=== PATIENT | male | born 1990 | race African-American/Black ===

== ENCOUNTER 2016-12-16 08:38 | Emergency (ER) | payer OTHER ==
[2016-12-16 08:44] VITALS: RESP 20
[2016-12-16] MEDS ORDERED: ACETAMINOPHEN TAB 500 MG TAB PO STA (08:56)
[2016-12-16] MEDS ORDERED: methylPREDNISolone SOD SUCCI 125 MG/2 ML VIAL IM STA (08:56)
[2016-12-16] MEDS ORDERED: IBUPROFEN 600 MG TAB PO STA (08:56)
[2016-12-16] MEDS ORDERED: IPRATROPIUM-ALBUTEROL 3 ML NEB INHALATION STA (08:56)
--- NOTE | 2016-12-16 08:59 | ED ---
General Adult HPI - General Chief complaint: Upper Respiratory Infection Stated complaint: SOB Time Seen by Provider: 12/16/16 08:46 Source: patient, RN notes reviewed Mode of arrival: ambulatory Limitations: no limitations - History of Present Illness Initial comments: 26-year-old male presents to the emergency room chief complaint of cough and shortness of breath. Patient states it started this morning. Patient states he did feel warm. Patient states that he does smoke. Patient denies any history of asthma. Patient states he just was not feeling very well so thought that he should be evaluated. Patient states he is not having any mucus production with his cough. Patient denies any recent fever, chills, chest pain , back pain, abdominal pain, nausea vomiting, numbness or tingling, dysuria or hematuria, constipation or diarrhea, headaches or visual changes, or any other current symptoms. - Related Data Home Medications Medication Instructions Recorded Confirmed Dm/PE/Acetaminophen/Doxylamine 1 dose PO ONCE 12/16/16 12/16/16 [Tylenol Cold Max Night Liquid] Previous Rx's Medication Instructions Recorded Albuterol Inhaler [Ventolin Hfa 1 - 2 puff INHALATION Q4-6H PRN #1 12/16/16 Inhaler] inhaler predniSONE 50 mg PO DAILY #5 tab 12/16/16 Allergies Allergy/AdvReac Type Severity Reaction Status Date / Time No Known Allergies Allergy Verified 12/16/16 09:12 Review of Systems ROS Statement: Those systems with pertinent positive or pertinent negative responses have been documented in the HPI. ROS Other: All systems not noted in ROS Statement are negative. Past Medical History Past Medical History: Hypertension History of Any Multi-Drug Resistant Organisms: None Reported Past Surgical History: No Surgical Hx Reported Past Psychological History: No Psychological Hx Reported Smoking Status: Current every day smoker Past Alcohol Use History: Occasional Past Drug Use History: Marijuana General Exam - General Exam Comments Initial Comments: General: The patient is awake and alert, in no distress, and does not appear acutely ill. Eye: Pupils are equal, round and reactive to light, extra-ocular movements are intact; there is normal conjunctiva bilaterally. No signs of icterus. Ears, nose, mouth and throat: There are moist mucous membranes and no oral lesions. Neck: The neck is supple, there is no tenderness. Cardiovascular: There is a regular rate and rhythm. No murmur, rub or gallop is appreciated. Respiratory: Lungs are clear to auscultation, respirations are non-labored, breath sounds are equal. Mild wheezes, no stridor, rales, or rhonchi. Musculoskeletal: Normal ROM, no tenderness, There is no pedal edema. There is no calf tenderness or swelling. Sensation intact. Pulses equal bilaterally 2+. Neurological: CN II-XII intact, There are no obvious motor or sensory deficits. Coordination appears grossly intact. Speech is normal. Skin: Skin is warm and dry and no rashes or lesions are noted. Psychiatric: Cooperative, appropriate mood & affect, normal judgment. Limitations: no limitations Course Vital Signs 12/16/16 12/16/16 12/16/16 08:42 08:48 09:13 Temperature 99.9 F H Pulse Rate 104 H 118 H 114 H Respiratory 20 20 Rate Blood Pressure 177/99 O2 Sat by Pulse 98 98 Oximetry 12/16/16 12/16/16 09:26 09:43 Temperature Pulse Rate 111 H 106 H Respiratory Rate Blood Pressure O2 Sat by Pulse 96 Oximetry Medical Decision Making - Medical Decision Making 26-year-old male presents for cough and shortness of breath. Patient Was Reassessed and States He Is Feeling Much Better. Patient Is Moving More Air and Wheezing Has Resolved. This and We Discussed Patient Most Likely Has an Acute Bronchitis. We'll Start Him on Steroids and Inhaler for Home. We Did Have a 5 Minute Discussion about Smoking Cessation and the Importance. We Did Discuss Return Parameters All Patient's Questions. They Stated They Understood and They Are Negative Plan. All Questions Have Been Answered. Patient Discharged Home. - Radiology Data Radiology results: report reviewed, image reviewed Disposition Clinical Impression: Acute bronchitis Disposition: HOME SELF-CARE Condition: Stable Instructions: Acute Bronchitis (ED) Additional Instructions: Please use medication as discussed. Please follow up with family doctor if symptoms have not improved over the next two days. Please return to the emergency room if your symptoms increase or worsen or for any other concerns. Prescriptions: Albuterol Inhaler [Ventolin Hfa Inhaler] 1 - 2 puff INHALATION Q4-6H PRN #1 inhaler PRN Reason: Cough predniSONE 50 mg PO DAILY #5 tab Referrals: Adair Ramirez MD [STAFF PHYSICIAN] - 1-2 days Time of Disposition: 10:07
--- NOTE | 2016-12-16 09:47 | XR ---
EXAMINATION TYPE: XR chest 2V DATE OF EXAM: 12/16/2016 COMPARISON: 09/09/2014 TECHNIQUE: PA and lateral views submitted. HISTORY: Shortness of breath FINDINGS: The lungs are clear and there is no pneumothorax, pleural effusion, or focal pneumonia. Heart size is stable and normal. No overt failure. Bilateral pleural thickening seen. IMPRESSION: 1. No acute process. Stable bilateral pleural-based thickening.
[2016-12-16 10:44] VITALS: BP 163/72; PULSE 95; TEMP 98.8
== END 2016-12-16 10:43 | disposition home or self-care (01) ==
LOC: EC 08:38
DX: J20.9 Acute bronchitis, unspecified (principal); F17.200 Nicotine dependence, unspecified, uncomplicated; Z79.899 Other long term (current) drug therapy
CPT/HCPCS: 94640; 71020; 99283; 96372; J2930

== ENCOUNTER 2017-04-11 22:58 | Emergency (ER) | payer OTHER ==
[2017-04-12] MEDS ORDERED: ACETAMINOPHEN TAB 325 MG TAB ONE (00:48)
[2017-04-12] MEDS ORDERED: IBUPROFEN 800 MG TAB ONE (00:48)
[2017-04-12 05:09] LABS: Appearance,Urine Clear (Clear); Bilirubin,Urine Negative (Negative); Blood,Urine Negative (Negative); Color,Urine Yellow; Glucose,Urine (UA) Negative (Negative); Ketones,Urine Negative (Negative); Leukocyte Esterase,Urine Negative (Negative); Mucus,Urine Rare /hpf; Nitrite,Urine Negative (Negative); PH, Urine 6.5 (5.0-8.0); Protein,Urine Negative (Negative); RBC,Urine 2 /hpf (0-5); Specific Gravity,Urine 1.021 (1.001-1.035); Squamous Epithelial Cell,Urine <1 /hpf (0-4); WBC,Urine 4 /hpf (0-5)
[2017-04-12 05:13] LABS: ALT 72 U/L (21-72); AST 32 U/L (17-59); Albumin 4.5 g/dL (3.5-5.0); Alkaline Phosphatase 66 U/L (38-126); Anion Gap 13 mmol/L; Blood Urea Nitrogen 16 mg/dL (9-20); Calcium 9.8 mg/dL (8.4-10.2); Carbon Dioxide 24 mmol/L (22-30); Chloride 101 mmol/L (98-107); Glucose 105 mg/dL (74-99); Sodium 138 mmol/L (137-145); Total Bilirubin 1.2 mg/dL (0.2-1.3); Total Protein 7.4 g/dL (6.3-8.2)
[2017-04-12 05:37] LABS: Basophils % (A) 0 %; Eosinophils # (A) 0.1 k/uL (0-0.7); Eosinophils % (A) 1 %; HCT 45.8 % (39.0-53.0); HGB 13.8 gm/dL (13.0-17.5); Hypochromasia Moderate; Lymphocytes # (A) 0.3 k/uL (1.0-4.8); Lymphocytes % (A) 5 %; MCH 22.8 pg (25.0-35.0); MCHC 30.2 g/dL (31.0-37.0); MCV 75.6 fL (80.0-100.0); Mean Platelet Volume 7.2; Monocytes # (A) 0.6 k/uL (0-1.0); Monocytes % (A) 11 %; Neutrophils # (A) 4.8 k/uL (1.3-7.7); Neutrophils % (A) 81 %; Platelet Count 143 k/uL (150-450); RBC 6.05 m/uL (4.30-5.90); RDW 12.8 % (11.5-15.5); WBC 5.9 k/uL (3.8-10.6)
--- NOTE | 2017-04-12 06:13 | XR ---
EXAM: XR Chest, 2 Views CLINICAL HISTORY: cough, congestion, shielded TECHNIQUE: Frontal and lateral views of the chest. COMPARISON: 09/09/14 FINDINGS: Lungs: Unremarkable. No consolidation. Pleural space: Unremarkable. No pneumothorax. Heart: Unremarkable. No cardiomegaly. Mediastinum: Unremarkable. Bones/joints: Unremarkable. IMPRESSION: Normal chest x-rays.
== END 2017-04-12 03:03 | disposition home or self-care (01) ==
LOC: EC 22:58
DX: R50.9 Fever, unspecified (principal); R51 Headache; R53.1 Weakness; M79.1 Myalgia; R00.0 Tachycardia, unspecified
CPT/HCPCS: 36415; 71046; 80053; 81003; 83605; 85025; 87502; 99283

== ENCOUNTER 2019-04-24 09:36 | Emergency (ER) | payer OTHER ==
[2019-04-24] MEDS ORDERED: IBUPROFEN 800 MG TAB PO STA (09:52)
--- NOTE | 2019-04-24 09:55 | ED ---
URI HPI - General Chief Complaint: Upper Respiratory Infection Stated Complaint: sore throat/ear pain Time Seen by Provider: 04/24/19 09:47 Source: patient, RN notes reviewed Mode of arrival: ambulatory Limitations: no limitations - History of Present Illness Initial Comments: 28-year-old male presents emergency Department with chief complaint cough duarte estion fever bodyaches last 3 days. Patient states that his son was sick with some her symptoms. Patient has not taken any recent Tylenol or Motrin. Patient states he aches head the toe. Patient denies any nausea vomiting diarrhea constipation or shortness breath. Patient denies any neck pain, neck stiffness. Patient does complain of mild headache. - Related Data Previous Rx's Medication Instructions Recorded Azithromycin [Zithromax Z-pack] 0 mg PO DIRECTED #1 pack 04/24/19 Allergies Allergy/AdvReac Type Severity Reaction Status Date / Time No Known Allergies Allergy Verified 04/24/19 09:47 Review of Systems ROS Statement: Those systems with pertinent positive or pertinent negative responses have been documented in the HPI. ROS Other: All systems not noted in ROS Statement are negative. Past Medical History Past Medical History: Hypertension History of Any Multi-Drug Resistant Organisms: None Reported Past Surgical History: No Surgical Hx Reported Past Psychological History: No Psychological Hx Reported Smoking Status: Current every day smoker Past Alcohol Use History: Occasional Past Drug Use History: Marijuana General Exam Limitations: no limitations General appearance: alert, in no apparent distress Head exam: Present: atraumatic, normocephalic, normal inspection Eye exam: Present: normal appearance, PERRL, EOMI. Absent: scleral icterus, conjunctival injection, periorbital swelling ENT exam: Present: normal exam, normal oropharynx, mucous membranes moist, TM's normal bilaterally Neck exam: Present: normal inspection, full ROM. Absent: tenderness, meningismus, lymphadenopathy Respiratory exam: Present: normal lung sounds bilaterally. Absent: respiratory distress, wheezes, rales, rhonchi, stridor Cardiovascular Exam: Present: regular rate, normal rhythm, normal heart sounds. Absent: systolic murmur, diastolic murmur, rubs, gallop, clicks GI/Abdominal exam: Present: soft, normal bowel sounds. Absent: distended, tenderness, guarding, rebound, rigid Course Vital Signs 04/24/19 04/24/19 09:43 10:03 Temperature 98.8 F Pulse Rate 106 H Respiratory 20 16 Rate Blood Pressure 184/102 O2 Sat by Pulse 98 Oximetry Medical Decision Making - Medical Decision Making Chest x-rays unremarkable. Patient symptoms are consistent with acute bronchitis so patient son was recently diagnosed with strep pharyngitis will be to visit some ice return parameters were discussed. - Lab Data Lab Results 04/24/19 Range/Units 09:08 Influenza Type A RNA Not Detected (Not Detectd) Influenza Type B (PCR) Not Detected (Not Detectd) Disposition Clinical Impression: Bronchitis, Pharyngitis Disposition: HOME SELF-CARE Condition: Stable Instructions (If sedation given, give patient instructions): Acute Bronchitis (ED) Additional Instructions: Please return to the Emergency Department if symptoms worsen or any other concerns. Prescriptions: Azithromycin [Zithromax Z-pack] 0 mg PO DIRECTED #1 pack Is patient prescribed a controlled substance at d/c from ED?: No Referrals: None,Stated [Primary Care Provider] - 1-2 days Time of Disposition: 11:06
--- NOTE | 2019-04-24 10:07 | XR ---
EXAMINATION TYPE: XR chest 2V DATE OF EXAM: 04/24/2019 COMPARISON: 04/12/2017 HISTORY: Chest pain TECHNIQUE: Frontal and lateral views of the chest are obtained. FINDINGS: There is no focal air space opacity. No evidence for pneumothorax. No pleural effusion. The cardiac silhouette size is within normal limits. The osseous structures are grossly intact. IMPRESSION: 1. No acute cardiopulmonary process.
[2019-04-24 11:22] VITALS: BP 145/58; PULSE 91; RESP 18; TEMP 98.1
== END 2019-04-24 11:21 | disposition home or self-care (01) ==
LOC: EC 09:36
DX: J40 Bronchitis, not specified as acute or chronic (principal); J02.9 Acute pharyngitis, unspecified; F17.200 Nicotine dependence, unspecified, uncomplicated
CPT/HCPCS: 71046; 87502; 99284

== ENCOUNTER 2019-11-26 12:21 | Emergency (ER) | payer OTHER ==
[2019-11-26 12:27] VITALS: PULSE 89; RESP 18; TEMP 97.9
[2019-11-26] MEDS ORDERED: hydrALAZINE HCL 20 MG/ML 1 ML VIAL IVP STA ×2 (12:45→13:59)
--- NOTE | 2019-11-26 12:58 | ED ---
General Adult HPI - General Chief complaint: Recheck/Abnormal Lab/Rx Stated complaint: hypertension Time Seen by Provider: 11/26/19 12:35 Source: patient, RN notes reviewed Mode of arrival: ambulatory Limitations: no limitations - History of Present Illness Initial comments: 29-year-old male presents emergency Department chief complaint of hypertension. Patient states he went to [facility] for COVID testing and states that they checked his vitalshis blood pressure is elevated. Patient states that he does have a history of hypertension. Patient states that he used to be on lisinopril 20 states he has not taken it in a while. Patient has no complaints denies headache, dizziness, has pain, shortness breath, nausea, vomiting, diarrhea constipation. Patient states that he does not have a current primary care physician. Patient offers no other complaints. - Related Data Previous Rx's Medication Instructions Recorded lisinopriL 20 mg PO DAILY #30 tab 11/26/19 Allergies Allergy/AdvReac Type Severity Reaction Status Date / Time No Known Allergies Allergy Verified 11/26/19 13:13 Review of Systems ROS Statement: Those systems with pertinent positive or pertinent negative responses have been documented in the HPI. ROS Other: All systems not noted in ROS Statement are negative. Past Medical History Past Medical History: Hypertension History of Any Multi-Drug Resistant Organisms: None Reported Past Surgical History: No Surgical Hx Reported Past Psychological History: No Psychological Hx Reported Smoking Status: Current some day smoker Past Alcohol Use History: Occasional Past Drug Use History: Marijuana General Exam Limitations: no limitations General appearance: alert, in no apparent distress Head exam: Present: atraumatic, normocephalic, normal inspection Eye exam: Present: normal appearance, PERRL, EOMI. Absent: scleral icterus, conjunctival injection, periorbital swelling ENT exam: Present: normal exam, mucous membranes moist Neck exam: Present: normal inspection, full ROM. Absent: tenderness, meningismus, lymphadenopathy Respiratory exam: Present: normal lung sounds bilaterally. Absent: respiratory distress, wheezes, rales, rhonchi, stridor Cardiovascular Exam: Present: regular rate, normal rhythm, normal heart sounds. Absent: systolic murmur, diastolic murmur, rubs, gallop, clicks GI/Abdominal exam: Present: soft, normal bowel sounds. Absent: distended, tenderness, guarding, rebound, rigid Extremities exam: Present: other (Pulses equal on extremities) Neurological exam: Present: alert, oriented X3 Skin exam: Present: warm, dry, intact, normal color. Absent: rash Course Vital Signs 11/26/19 11/26/19 12:22 14:04 Temperature 97.9 F Pulse Rate 89 Respiratory 18 Rate Blood Pressure 199/150 174/103 O2 Sat by Pulse 99 Oximetry Medical Decision Making - Medical Decision Making 29-year-old male presents emergency department for a cement hypertension. Patient did have significant hypertension related to uncontrolled by not taking his medications. Patient was given antihypertensives emergency department. Patient did on lab results. Patient will be discharged on lisinopril 20 with follow-up with PCP. - Lab Data Result diagrams: 11/26/19 12:51 11/26/19 12:51 Lab Results 11/26/19 11/26/19 Range/Units 12:51 12:51 WBC 6.1 (3.8-10.6) k/uL RBC 6.03 H (4.30-5.90) m/uL Hgb 13.7 (13.0-17.5) gm/dL Hct 45.9 (39.0-53.0) % MCV 76.2 L (80.0-100.0) fL MCH 22.8 L (25.0-35.0) pg MCHC 29.9 L (31.0-37.0) g/dL RDW 13.6 (11.5-15.5) % Plt Count 133 L (150-450) k/uL Neutrophils % 54 % Lymphocytes % 29 % Monocytes % 9 % Eosinophils % 3 % Basophils % 1 % Neutrophils # 3.3 (1.3-7.7) k/uL Lymphocytes # 1.8 (1.0-4.8) k/uL Monocytes # 0.6 (0-1.0) k/uL Eosinophils # 0.2 (0-0.7) k/uL Basophils # 0.1 (0-0.2) k/uL Hypochromasia Marked Sodium 138 (137-145) mmol/L Potassium 4.6 (3.5-5.1) mmol/L Chloride 105 (98-107) mmol/L Carbon Dioxide 25 (22-30) mmol/L Anion Gap 8 mmol/L BUN 18 (9-20) mg/dL Creatinine 1.40 H (0.66-1.25) mg/dL Est GFR (CKD-EPI)AfAm 78 (>60 ml/min/1.73 sqM) Est GFR (CKD-EPI)NonAf 68 (>60 ml/min/1.73 sqM) Glucose 109 H (74-99) mg/dL Calcium 9.3 (8.4-10.2) mg/dL Total Bilirubin 0.8 (0.2-1.3) mg/dL AST 40 (17-59) U/L ALT 47 (4-49) U/L Alkaline Phosphatase 63 (38-126) U/L Total Protein 7.3 (6.3-8.2) g/dL Albumin 4.5 (3.5-5.0) g/dL Disposition Clinical Impression: Hypertension Disposition: HOME SELF-CARE Condition: Stable Instructions (If sedation given, give patient instructions): Hypertension (ED) Additional Instructions: Please return to the Emergency Department if symptoms worsen or any other concerns. Prescriptions: lisinopriL 20 mg PO DAILY #30 tab Is patient prescribed a controlled substance at d/c from ED?: No Referrals: Clifford Moy [STAFF PHYSICIAN] - 1-2 days Mickey Garcia MD [STAFF PHYSICIAN] - 1-2 days Time of Disposition: 14:23
[2019-11-26 13:09] LABS: Basophils # (A) 0.1 k/uL (0-0.2); Basophils % (A) 1 %; Eosinophils # (A) 0.2 k/uL (0-0.7); Eosinophils % (A) 3 %; HCT 45.9 % (39.0-53.0); HGB 13.7 gm/dL (13.0-17.5); Hypochromasia Marked; Lymphocytes # (A) 1.8 k/uL (1.0-4.8); Lymphocytes % (A) 29 %; MCH 22.8 pg (25.0-35.0); MCHC 29.9 g/dL (31.0-37.0); MCV 76.2 fL (80.0-100.0); Mean Platelet Volume 7.3; Monocytes # (A) 0.6 k/uL (0-1.0); Monocytes % (A) 9 %; Neutrophils # (A) 3.3 k/uL (1.3-7.7); Neutrophils % (A) 54 %; Platelet Count 133 k/uL (150-450); RBC 6.03 m/uL (4.30-5.90); RDW 13.6 % (11.5-15.5); WBC 6.1 k/uL (3.8-10.6)
[2019-11-26 13:27] LABS: Albumin 4.5 g/dL (3.5-5.0); Calcium 9.3 mg/dL (8.4-10.2); Total Bilirubin 0.8 mg/dL (0.2-1.3); Total Protein 7.3 g/dL (6.3-8.2)
[2019-11-26 13:29] LABS: Potassium 4.6 mmol/L (3.5-5.1)
[2019-11-26] MEDS ORDERED: ENALAPRILAT 1.25 MG/ML 1 ML VIAL IVP STA (13:37)
[2019-11-26 14:24] VITALS: BP 178/96
== END 2019-11-26 14:35 | disposition home or self-care (01) ==
LOC: EC 12:21
DX: I10 Essential (primary) hypertension (principal); F17.200 Nicotine dependence, unspecified, uncomplicated
CPT/HCPCS: 36415; 93005; 80053; 85025; 99283; 96374; 96375; 96376; J0360

== ENCOUNTER 2019-11-26 16:14 | Emergency (ER) | payer OTHER ==
[2019-11-26 16:41] VITALS: TEMP 98.4
[2019-11-26] MEDS ORDERED: METOCLOPRAMIDE 5 MG/ML 2 ML VIAL IVP STA (16:43)
[2019-11-26] MEDS ORDERED: SODIUM CHLORIDE 0.9% 1,000 ML IV STA (16:43)
[2019-11-26] MEDS ORDERED: diphenhydrAMINE 50 MG/ML 1 ML VIAL IVP STA (16:43)
[2019-11-26] MEDS ORDERED: LABETALOL 5 MG/ML VIAL MDV IVP STA (16:47)
--- NOTE | 2019-11-26 16:47 | ED ---
Recheck HPI - General Chief Complaint: Headache Stated Complaint: recheck - headache Time Seen by Provider: 11/26/19 16:42 Source: patient, RN notes reviewed, old records reviewed Mode of arrival: ambulatory Limitations: no limitations - History of Present Illness Initial Comments: This is a 29-year-old male date ER with diagnosis of hypertension did start new blood pressure medication today went home took a nap and woke up with a severe headache. Other headache patient has renal no acute symptoms. Patient presents to ER those events. Has known blood pressure issues for years. No chest pain. MD Complaint: other (Abnormal blood pressure with associated headache) -: hour(s) Returns Today for: Called Because of Abnormal Lab/Test (Abnormal), persistent/worsening pain related to initial visit ( blood pressureheadache ) Symptoms Since Prior Visit: worsening pain (Headache) Associated Symptoms: none Treatments Prior to Arrival: other medications (Did start new medication today) - Related Data Previous Rx's Medication Instructions Recorded Metoprolol Tartrate [Lopressor] 50 mg PO BID #60 tab 11/26/19 lisinopriL 20 mg PO DAILY #30 tab 11/26/19 Allergies Allergy/AdvReac Type Severity Reaction Status Date / Time No Known Allergies Allergy Verified 11/26/19 16:40 Review of Systems ROS Statement: Those systems with pertinent positive or pertinent negative responses have been documented in the HPI. ROS Other: All systems not noted in ROS Statement are negative. Past Medical History Past Medical History: Hypertension History of Any Multi-Drug Resistant Organisms: None Reported Past Surgical History: No Surgical Hx Reported Past Psychological History: No Psychological Hx Reported Smoking Status: Current some day smoker Past Alcohol Use History: Occasional Past Drug Use History: Marijuana General Exam Limitations: no limitations Course Vital Signs 11/26/19 11/26/19 11/26/19 16:34 17:28 17:54 Temperature 98.4 F Pulse Rate 104 H 89 87 Respiratory 18 20 20 Rate Blood Pressure 209/136 174/99 175/123 O2 Sat by Pulse 98 100 100 Oximetry - Reevaluation(s) Reevaluation #1: 11/26/19 17:06 Medical record and ER visit from today are reviewed Reevaluation #2: 11/26/19 18:28 Blood pressure continues to show improvement in the ER headache is resolved Reevaluation #3: 11/26/19 18:28 Patient informed results, questions answered Reevaluation #4: 11/26/19 18:29 Patient will be started on a second dairy blood pressure medication Medical Decision Making - Medical Decision Making 29 male here in the ER patient for headache likely blood pressure related. Fanny ent has normal CT scan here in the ER and can be discharged - Lab Data Result diagrams: 11/26/19 16:59 11/26/19 16:59 Lab Results 11/26/19 11/26/19 11/26/19 Range/Units 16:59 16:59 16:59 WBC 6.7 (3.8-10.6) k/uL RBC 6.25 H (4.30-5.90) m/uL Hgb 14.2 (13.0-17.5) gm/dL Hct 47.1 (39.0-53.0) % MCV 75.3 L (80.0-100.0) fL MCH 22.7 L (25.0-35.0) pg MCHC 30.1 L (31.0-37.0) g/dL RDW 13.6 (11.5-15.5) % Plt Count 169 (150-450) k/uL Neutrophils % 53 % Lymphocytes % 31 % Monocytes % 8 % Eosinophils % 3 % Basophils % 1 % Neutrophils # 3.5 (1.3-7.7) k/uL Lymphocytes # 2.1 (1.0-4.8) k/uL Monocytes # 0.6 (0-1.0) k/uL Eosinophils # 0.2 (0-0.7) k/uL Basophils # 0.1 (0-0.2) k/uL Hypochromasia Moderate PT 9.6 (9.0-12.0) sec INR 0.9 (<1.2) APTT 23.5 (22.0-30.0) sec Sodium 138 (137-145) mmol/L Potassium 3.8 (3.5-5.1) mmol/L Chloride 104 (98-107) mmol/L Carbon Dioxide 24 (22-30) mmol/L Anion Gap 10 mmol/L BUN 16 (9-20) mg/dL Creatinine 1.32 H (0.66-1.25) mg/dL Est GFR (CKD-EPI)AfAm 84 (>60 ml/min/1.73 sqM) Est GFR (CKD-EPI)NonAf 73 (>60 ml/min/1.73 sqM) Glucose 128 H (74-99) mg/dL Calcium 9.8 (8.4-10.2) mg/dL Phosphorus 3.5 (2.5-4.5) mg/dL Magnesium 1.9 (1.6-2.3) mg/dL Total Bilirubin 0.8 (0.2-1.3) mg/dL AST 32 (17-59) U/L ALT 47 (4-49) U/L Alkaline Phosphatase 72 (38-126) U/L Creatine Kinase 349 H (55-170) U/L Troponin I (0.000-0.034) ng/mL NT-Pro-B Natriuret Pep pg/mL Total Protein 7.5 (6.3-8.2) g/dL Albumin 4.7 (3.5-5.0) g/dL TSH 1.340 (0.465-4.680) mIU/L 11/26/19 11/26/19 Range/Units 16:59 16:59 WBC (3.8-10.6) k/uL RBC (4.30-5.90) m/uL Hgb (13.0-17.5) gm/dL Hct (39.0-53.0) % MCV (80.0-100.0) fL MCH (25.0-35.0) pg MCHC (31.0-37.0) g/dL RDW (11.5-15.5) % Plt Count (150-450) k/uL Neutrophils % % Lymphocytes % % Monocytes % % Eosinophils % % Basophils % % Neutrophils # (1.3-7.7) k/uL Lymphocytes # (1.0-4.8) k/uL Monocytes # (0-1.0) k/uL Eosinophils # (0-0.7) k/uL Basophils # (0-0.2) k/uL Hypochromasia PT (9.0-12.0) sec INR (<1.2) APTT (22.0-30.0) sec Sodium (137-145) mmol/L Potassium (3.5-5.1) mmol/L Chloride (98-107) mmol/L Carbon Dioxide (22-30) mmol/L Anion Gap mmol/L BUN (9-20) mg/dL Creatinine (0.66-1.25) mg/dL Est GFR (CKD-EPI)AfAm (>60 ml/min/1.73 sqM) Est GFR (CKD-EPI)NonAf (>60 ml/min/1.73 sqM) Glucose (74-99) mg/dL Calcium (8.4-10.2) mg/dL Phosphorus (2.5-4.5) mg/dL Magnesium (1.6-2.3) mg/dL Total Bilirubin (0.2-1.3) mg/dL AST (17-59) U/L ALT (4-49) U/L Alkaline Phosphatase (38-126) U/L Creatine Kinase (55-170) U/L Troponin I <0.012 (0.000-0.034) ng/mL NT-Pro-B Natriuret Pep 49 pg/mL Total Protein (6.3-8.2) g/dL Albumin (3.5-5.0) g/dL TSH (0.465-4.680) mIU/L - EKG Data -: EKG Interpreted by Me (EKG is sinus rhythm of 91 IN 18 QRS 110 QTc 4:30) Disposition Clinical Impression: Hypertension, Rebound headache Disposition: HOME SELF-CARE Condition: Good Instructions (If sedation given, give patient instructions): Acute Headache ( ED), Hypertension (ED) Prescriptions: Metoprolol Tartrate [Lopressor] 50 mg PO BID #60 tab Is patient prescribed a controlled substance at d/c from ED?: No Referrals: None,Stated [Primary Care Provider] - 1-2 days
[2019-11-26] MEDS: MORPHINE SULFATE 4 MG/ML SYRINGE IV STA ×2 (16:57→16:58)
[2019-11-26 17:10] LABS: Basophils # (A) 0.1 k/uL (0-0.2); Basophils % (A) 1 %; Eosinophils # (A) 0.2 k/uL (0-0.7); Eosinophils % (A) 3 %; HCT 47.1 % (39.0-53.0); HGB 14.2 gm/dL (13.0-17.5); Hypochromasia Moderate; Lymphocytes # (A) 2.1 k/uL (1.0-4.8); Lymphocytes % (A) 31 %; MCH 22.7 pg (25.0-35.0); MCHC 30.1 g/dL (31.0-37.0); MCV 75.3 fL (80.0-100.0); Mean Platelet Volume 9.2; Monocytes # (A) 0.6 k/uL (0-1.0); Monocytes % (A) 8 %; Neutrophils # (A) 3.5 k/uL (1.3-7.7); Neutrophils % (A) 53 %; Platelet Count 169 k/uL (150-450); RBC 6.25 m/uL (4.30-5.90); RDW 13.6 % (11.5-15.5); WBC 6.7 k/uL (3.8-10.6)
[2019-11-26 17:18] LABS: INR 0.9 (<1.2); Partial Thromboplastin Time 23.5 sec (22.0-30.0); Prothrombin Time 9.6 sec (9.0-12.0)
--- NOTE | 2019-11-26 17:18 | XR ---
EXAMINATION TYPE: XR chest 2V DATE OF EXAM: 11/26/2019 COMPARISON: 04/24/2019 INDICATION: Weakness TECHNIQUE: Frontal and lateral views of the chest are obtained. FINDINGS: The heart size is normal. The pulmonary vasculature is normal. The lungs are clear. Cardiac silhouette is stable in appearance. IMPRESSION: 1. No acute pulmonary process.
[2019-11-26 17:22] LABS: Albumin 4.7 g/dL (3.5-5.0); Calcium 9.8 mg/dL (8.4-10.2); Magnesium 1.9 mg/dL (1.6-2.3); Phosphorus 3.5 mg/dL (2.5-4.5); Potassium 3.8 mmol/L (3.5-5.1); Total Bilirubin 0.8 mg/dL (0.2-1.3); Total Protein 7.5 g/dL (6.3-8.2)
--- NOTE | 2019-11-26 18:13 | CT ---
EXAMINATION TYPE: CT brain wo con DATE OF EXAM: 11/26/2019 COMPARISON: 05/10/2010 INDICATION: BLOOM DLP: 1169.4 mGycm, Automated exposure control for dose reduction was used. CONTRAST: None CT of the brain is performed utilizing 3 mm thick sections through the posterior fossa and 3 mm thick sections through the remaining calvarium. Study is performed within 24 hours of arrival to the hosp [facility]. No abnormal hyperdensity is present to suggest an acute intracranial hemorrhage. No mass lesion is evident. No acute infarcts are evident. Ventricles and sulci are appropriate for the patient age. There is mucosal thickening within the maxillary sinuses and through ethmoid air cells. Frontal sinus es are aplastic. Sphenoid sinuses are clear as are the mastoid air cells. IMPRESSIONS: 1. No acute intracranial process. 2. Mucosal thickening throughout the paranasal sinuses.
[2019-11-26] MEDS ORDERED: cloNIDine 0.2 MG/24HR PATCH TRANSDERM SCH (18:30)
[2019-11-26 18:41] VITALS: PULSE 82; RESP 16
[2019-11-26 18:41] LABS: Appearance,Urine Clear (Clear); Bilirubin,Urine Negative (Negative); Blood,Urine Negative (Negative); Color,Urine Yellow; Glucose,Urine (UA) Negative (Negative); Ketones,Urine Negative (Negative); Leukocyte Esterase,Urine Negative (Negative); Nitrite,Urine Negative (Negative); Protein,Urine Trace (Negative); Specific Gravity,Urine 1.018 (1.001-1.035); Urobilinogen,Urine <2.0 mg/dL (<2.0)
[2019-11-26] MEDS ORDERED: METOPROLOL TARTRATE 50 MG TAB PO STA (18:54)
[2019-11-26 18:56] VITALS: BP 183/114
[2019-11-26] MEDS ORDERED: MORPHINE SULFATE 4 MG/ML SYRINGE IVP STA (19:02)
== END 2019-11-26 19:12 | disposition home or self-care (01) ==
LOC: EC 16:14
DX: I10 Essential (primary) hypertension (principal); R51 Headache; F17.200 Nicotine dependence, unspecified, uncomplicated
CPT/HCPCS: 99285 ×2; 96374 ×2; 96375 ×4; 96361 ×3; 96376; 99283; 36415; 93005; 83880; 80053; 82550; 83735; 84100; 84443; 84484; 85025; 85610; 85730; 81003; 71046; 70450; J2270; J0360; J1200; J2765

== ENCOUNTER 2020-01-16 14:47 | Day surgery (SDC) | payer OTHER ==
[2020-01-14 09:34] VITALS: BMI 48.7
--- NOTE | 2020-01-16 07:36 | P.GSHP ---
History of Present Illness H&P Date: 01/16/20 CHIEF COMPLAINT: Back mass HISTORY OF PRESENT ILLNESS: The patient is a 29 year-old male with history of mass along the mid back. He presents today for surgical excision. PAST MEDICAL HISTORY: Please see list. PAST SURGICAL HISTORY: Please see list. MEDICATIONS: Please see list. ALLERGIES: Please see list. SOCIAL HISTORY: Please see list. FAMILY HISTORY: No reports of Crohn disease or ulcerative colitis. REVIEW OF ORGAN SYSTEMS: CONSTITUTIONAL: No reports of fevers or chills. GI: Denies any blood in stools or constipation. PHYSICAL EXAM: VITAL SIGNS: Stable Musculoskeletal: No clubbing cyanosis or edema SKIN: Mid back lesion 3 cm GENERAL: Well developed and in no acute distress. Pleasant. HEENT: No sclera icterus. Extraocular movements grossly intact. Moist buccal mucosa. Head is atraumatic, normocephalic. Hears conversational speech. No nasal drainage. NECK: Supple without lymphadenopathy. No JV distention. CHEST: Non-labored respirations and equal bilateral excursions. CARDIOVASCULAR: Regular rate and rhythm. Palpable 2+ radial pulses. ABDOMEN: Soft. Non-tender. Nondistended. NEUROLOGIC: No focal or lateralizing signs. PSYCH: Appropriate affect. Alert and oriented to person, place and time. ASSESSMENT: 1. Mid back mass PLAN: 1. Will proceed of excision of subcutaneous tumor along the back. 2. DVT prophylaxis. 3. Antibiotic prophylaxis. 4. Time of recovery, at least one week. Past Medical History Past Medical History: Hypertension History of Any Multi-Drug Resistant Organisms: None Reported Past Surgical History: No Surgical Hx Reported Past Anesthesia/Blood Transfusion Reactions: No Reported Reaction Smoking Status: Current every day smoker - Past Family History Mother Family Medical History: No Reported History Medications and Allergies Home Medications Medication Instructions Recorded Confirmed Type Amlodipine Besylate/Valsartan 1 each PO DAILY 01/14/20 01/14/20 History [Amlodipine-Valsartan 5-160 mg] Metoprolol Succinate (ER) [Toprol 100 mg PO DAILY 01/14/20 01/14/20 History Xl] Allergies Allergy/AdvReac Type Severity Reaction Status Date / Time No Known Allergies Allergy Verified 01/14/20 09:18
[~2020-01-16 14:47] MED LIST: DEXAMETHASONE SOD PHOSPHATE 10 MG/ML 1 ML VIAL IV ONE; HEPARIN SODIUM,PORCINE 5,000 UNIT/ML 1 ML VIAL SQ STA; HYDROmorphone 0.5 MG/0.5 ML SYRINGE IVP PRN; LACTATED RINGERS 1,000 ML IV SCH; ONDANSETRON 4 MG/2 ML VIAL IVP ONE; Pre Op ABX Message 1 EACH MISC MISCELLANE ONE; ceFAZolin 3 GM in SODIUM CHLORIDE 0.9% 100 ML IVPB ONE
[2020-01-16] MEDS ORDERED: LIDOCAINE 1% (10MG/ML) FOR IV START INTRADERMA ONE (15:36)
[2020-01-16] MEDS ORDERED: MIDAZOLAM 2 MG/2 ML VIAL IV ONE (15:55)
[2020-01-16] MEDS ORDERED: PROPOFOL 10 MG/ML 20 ML VIAL IV ONE (17:18)
[2020-01-16] MEDS ORDERED: fentaNYL (PF) 50 MCG/ML 2 ML AMP ONE (17:18)
[2020-01-16] MEDS ORDERED: MIDAZOLAM 2 MG/2 ML VIAL ONE (17:18)
[2020-01-16] MEDS ORDERED: ROCURONIUM 10 MG/ML (10 ML VIAL) IV ONE (17:18)
[2020-01-16] MEDS ORDERED: SUCCINYLCHOLINE CHLORIDE 100 MG/5 ML SYR IV ONE (17:18)
[2020-01-16] MEDS ORDERED: GLYCOPYRROLATE 0.2 MG/ML 2 ML VIAL ONE (17:18)
[2020-01-16] MEDS ORDERED: LIDOCAINE 1% INJ 10MG/ML (20 ML MDV) ONE (17:18)
[2020-01-16] MEDS ORDERED: NEOSTIGMINE 1 MG/ML 10 ML VIAL ONE (17:18)
[2020-01-16] MEDS ORDERED: LIDOCAINE 1%-EPI 1:100,000 20 ML VIAL SQ ONE (17:54)
[2020-01-16] MEDS ORDERED: LACTATED RINGERS 1,000 ML IV ONE (18:00)
--- NOTE | 2020-01-16 18:40 | P.OP ---
Date of Procedure: 01/16/20 Description of Procedure: SURGEON: MARIBELL LAMA MD REGIONAL GUIDE: None. PREOPERATIVE DIAGNOSES: 1. Central back tumor 2. Hypertensive heart disease 3. Morbid obesity due to excess calories, BMI 47.6 POSTOPERATIVE DIAGNOSES: 1. Deep subcutaneous Central back back tumor, 6 x 3 cm 2. Hypertensive heart disease 3. Morbid obesity due to excess calories, BMI 47.6 PROCEDURES PERFORMED: 1. Excision of deep subcutaneous Central back back mass, 6 x 3 cm 2. Complex four layer closure left upper back incision, 8-cm Anesthesia: GETA, local Estimated Blood Loss (ml): 5 Pathology: other (back mass) Condition: stable Disposition: same day COMPLICATIONS: None. Operative Findings: 1. Excision of deep subcutaneous Central back tumor 6 x 3 cm INDICATIONS: The patient is a 29-year-old male who presents with symptomatic upper back tumor. Benefits and risks of surgical intervention were described including bleeding, infection, seroma, pain and recurrence. Informed consent was obtained. DESCRIPTION OR PROCEDURE: In the preoperative area, the area of concern was marked with indelible marker. Patient was brought into the operating room. After general induction, he was positioned in left lateral decubitus position. The back was prepped and draped in a standard sterile fashion with ChloraPrep. Timeout protocol was confirmed with the surgical team regarding the patient's name, procedure to be performed including preoperative medications. DVT prophylaxis was confirmed. A field block was placed of the back. An elliptical transverse incision using #1blade was made along the marking into the dermis and subcutaneous tissue. Electro-Bovie cautery was used to enter deep into the deep subcutaneous tissue where a tumor was removed in total of 6 x 3 cm. 0 Vicryl for the deep subcutaneous tissue followed by 3-0 Vicryl for the subcutaneous tissue was placed in interrupted fashion. 4-0 Monocryl in a running subcuticular fashion was placed along the dermis. The skin was cleansed and Exofin tape with liquid was applied for a four layer closure. The incision was covered with Optifoam dressing. At the end of the procedure, needle, sponge, and instrument count was verified correct by surgical instruments inspector. The patient tolerated the procedure well. Plan - Discharge Summary Discharge Rx Participant: No New Discharge Prescriptions: New Ibuprofen [Motrin] 600 mg PO Q8HR PRN #30 tab PRN Reason: Pain Acetaminophen Tab [Tylenol Tab] 1,000 mg PO Q6HR PRN #30 tablet PRN Reason: Pain Continue Amlodipine Besylate/Valsartan [Amlodipine-Valsartan 5-160 mg] 1 each PO DAILY Metoprolol Succinate (ER) [Toprol XL] 100 mg PO DAILY Discharge Medication List Amlodipine Besylate/Valsartan [Amlodipine-Valsartan 5-160 mg] 1 each PO DAILY 01/14/20 [History] Metoprolol Succinate (ER) [Toprol XL] 100 mg PO DAILY 01/14/20 [History] Acetaminophen Tab [Tylenol Tab] 1,000 mg PO Q6HR PRN #30 tablet 01/16/20 [Rx] Ibuprofen [Motrin] 600 mg PO Q8HR PRN #30 tab 01/16/20 [Rx] Follow up Appointment(s)/Referral(s): Maribell Lama MD [STAFF PHYSICIAN] - 01/21/20 Patient Instructions/Handouts: Excision of Skin Lesion (DC) Activity/Diet/Wound Care/Special Instructions: NO WIDE MOTIONS OF THE SHOULDERS/ARMS FOR 1 WEEK. May not return to work until cleared by surgeon. See instructions on dressing. DO NOT REMOVE DRESSING. Use ibuprofen/Tylenol scheduled the next 24-48 hours for best pain relief No lifting over 10 pounds in 2 weeks, Jan 29July shower. No bath tub soaks for two weeks, Jan 29 Diet as tolerated. Use ice along incisions 15 minutes off 15 minutes on Notify surgeon for temperature over 101.5, increased redness along incision, increased pain along surgical site. Discharge Disposition: HOME SELF-CARE
[2020-01-16 19:06] VITALS: TEMP 97.9
[2020-01-16 19:50] VITALS: BP 115/78; PULSE 82; RESP 18
== END 2020-01-16 20:01 | disposition home or self-care (01) ==
LOC: OR 14:47
PROVIDERS: ATTEND Surgery Plastic and Reconstructive Surgery
DX: D23.5 Other benign neoplasm of skin of trunk (principal); I11.9 Hypertensive heart disease without heart failure; E66.01 Morbid (severe) obesity due to excess calories; Z68.42 Body mass index [BMI] 45.0-49.9, adult; F17.200 Nicotine dependence, unspecified, uncomplicated; Z79.899 Other long term (current) drug therapy; K21.9 Gastro-esophageal reflux disease without esophagitis
CPT/HCPCS: 21931; 88305; J2250; J1644; J1100; J2710; J0690; J2405; J2001; J3010; J0330; J2704

== ENCOUNTER → 2020-06-17 | Outpatient (CLI) | payer OTHER ==
--- NOTE | 2020-06-17 11:54 | CONS ---
CONSULTATION DATE OF SERVICE: 06/17/2020 A 29-year-old gentleman has been [facility] for obstructive sleep apnea- hypopnea syndrome. HISTORY OF PRESENT ILLNESS/SLEEP-WAKE EVALUATION: Patient usual sleep schedule from 1 a.m. to 7 a.m. No problems with falling asleep. No TV in bedroom. Patient usually sleeps on the side position. He sleeps with witnessed loud snoring and witnessed episodes of stopped breathing during sleep. Patient wakes up from sleep 3 times with episodes of choking and nocturia. Sometimes he may see dreams right after falling asleep. No history of sleep paralysis or cataplexy. He may take naps 3 times a day. He does not feel refreshed after naps and seeing vivid dreams during the naps. Dent Sleepiness Scale is in extremely high range of 19. The patient has history of home sleep apnea test which was done on 04/19/2020 in another institution. Results of the test showed apnea-hypopnea index 66 with oxygen desaturation to 62%. PAST MEDICAL HISTORY: Positive for hypertension. PAST SURGICAL HISTORY: Positive for back surgery for removing cyst in December 2020. MEDICATIONS: Amlodipine 5 mg, valsartan 160 mg once a day. SOCIAL HISTORY: Negative for using alcohol. Positive for smoking marijuana and small amount of cigarettes 1 cigarette a day according to patient. FAMILY HISTORY: Positive for diabetes and hypertension. REVIEW OF SYSTEMS: Very significant excessive daytime sleepiness, multiple awakenings from sleep. PHYSICAL EXAMINATION: GENERAL: gentleman without distress. VITAL SIGNS: BP 176/116, HR 86, RR18, height 5 feet 8-1/2 inches, weight 332.8 pounds, body mass index 49.8, temperature 98.4, oxygen saturation at room air 98%. HEENT: PERRLA, EOMI. Oropharynx low position of soft palate. Mallampati 3. NECK: Wide neck 19-1/2 inches in circumference. LUNGS: Clear to percussion and to auscultation. Good air exchange. No wheezing or rhonchi. HEART: S1, S2 regular. No murmurs, gallops, or rubs. ABDOMEN: Obese. EXTREMITIES: No clubbing or cyanosis. NETWORKS SOFTWARE CONSULTANT: Awake, alert, and oriented X3. Cranial nerves 2 to 7 intact. There is no fasciculation or atrophy. noted. No focal deficits observed. IMPRESSION: 1. Loud snoring, witnessed episodes of stopped breathing during sleep, small oropharyngeal air space, wide neck, sleepiness. Results of home sleep apnea test which was done in another institution indicate severe obstructive sleep apnea-hypopnea syndrome with apnea-hypopnea index 65 and oxygen desaturation to 52%. 1. Very significant excessive daytime sleepiness. Dent Sleepiness Scale is 19. Positive history of hypnagogic hallucinations. Differential diagnosis would include hypersomnia if after treatment of obstructive sleep apnea-hypopnea syndrome, patient will continue to have symptoms of excessive daytime sleepiness. 2. Morbid obesity, body mass index 49.8. 3. Hypertension. 4. Status post back surgery for cyst removing on January 07. PLAN: 1. CPAP titration for correction of patient respiratory abnormalities during sleep, treatment with auto PAP is not best choice because of extremely severe morbid obesity. 2. Aggressive losing weight program. 3. Sleep hygiene with regular time in bed for 7-1/2 to 8 hours. 4. No driving if feeling any sleepiness. Thank you very much for referring this patient for consultation. Sincerely, Rafael Dacosta MD, PhD, FAASM Diplomat of [place] [employer] [place] [employer] Loss Control Consultant of [facility] MMODL / IJN: [id number] /
== END ==
LOC: SLEEP 10:10
PROVIDERS: ATTEND Internal Medicine
DX: G47.33 Obstructive sleep apnea (adult) (pediatric) (principal); E66.01 Morbid (severe) obesity due to excess calories; Z68.42 Body mass index [BMI] 45.0-49.9, adult; I10 Essential (primary) hypertension; Z98.890 Other specified postprocedural states; F17.210 Nicotine dependence, cigarettes, uncomplicated
CPT/HCPCS: 99211

== ENCOUNTER → 2022-07-27 | Outpatient (CLI) | payer OTHER ==
--- NOTE | 2022-07-27 08:34 | US ---
EXAMINATION TYPE: US renal artery duplex complet DATE OF EXAM: 07/27/2022 COMPARISON: NONE CLINICAL INDICATION: Male, 31 years old with history of I10 ESSENTIAL (PRIMARY) HYPERTENSION; HTN for years even with medication MEASUREMENTS: RENAL SIZE: Rt Kidney: 12.4 x 5.8 x 6.3cm Lt Kidney: 13.0 x 4.8 x 5.9cm RESISTANCE INDEX Right: 0.6 Left: 0.6 RA/AO RATIO (< 3.5 ) Right: 1.4 Left: 1.6 RA VELOCITY ( < 180 cm/s) Right: 98.1 Left: 159.5 No abdominal aortic aneurysm. Normal spectral arterial waveforms involving the aorta. Both kidneys appear unremarkable without evidence of hydronephrosis, nephrolithiasis, or solid mass. No parvus tardus waveforms identified. No significant elevated renal artery velocity. IMPRESSION: No ultrasound evidence for renal artery stenosis.
== END | disposition home or self-care (01) ==
LOC: RADUSWWP 07:03
PROVIDERS: ATTEND Family Medicine
DX: I10 Essential (primary) hypertension (principal)
CPT/HCPCS: 93975

== ENCOUNTER 2024-06-30 17:06 | Inpatient (IN) | payer OTHER ==
[2024-06-30] MEDS: MORPHINE SULFATE 4 MG/ML SYRINGE IV STA (18:16)
[2024-06-30 18:20] LABS: Basophils # (A) 0.05 10*3/uL (0.00-0.10); Basophils % (A) 0.7 %; Eosinophils # (A) 0.07 10*3/uL (0.04-0.35); HCT 41.3 % (39.6-50.0); Immature Platelet Fraction 6.7 % (1.1-6.1); Lymphocytes % (A) 32.7 %; MCH 23.2 pg (27.0-32.0); MCHC 31.5 g/dL (32.0-37.0); MCV 73.6 fL (80.0-97.0); Mean Platelet Volume 11.2 fL (9.5-12.2); Monocytes # (A) 0.92 10*3/uL (0.20-1.00); Monocytes % (A) 13.1 %; Neutrophils # (A) 3.67 10*3/uL (1.80-7.70); Neutrophils % (A) 52.2 %; Platelet Count 117 10*3/uL (140-440); RBC 5.61 10*6/uL (4.40-5.60); RDW 13.7 % (11.5-14.5); WBC 7.03 10*3/uL (4.50-10.00)
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
[2024-06-30 18:30] LABS: ALT 35 U/L (4-49); AST 35 U/L (17-59); African American GFR (CKD) 31 (>60 ml/min/1.73 sqM); Alkaline Phosphatase 74 U/L (38-126); Anion Gap 8 mmol/L; Blood Urea Nitrogen 37 mg/dL (9-20); Calcium 8.8 mg/dL (8.4-10.2); Carbon Dioxide 26 mmol/L (22-30); Chloride 104 mmol/L (98-107); Glucose 110 mg/dL (74-99); Magnesium 2.1 mg/dL (1.6-2.3); Non-African American GFR(CKD) 27 (>60 ml/min/1.73 sqM); Potassium 3.5 mmol/L (3.5-5.1); Sodium 138 mmol/L (137-145); Total Bilirubin 0.9 mg/dL (0.2-1.3); Total Protein 6.6 g/dL (6.3-8.2)
[2024-06-30] MEDS: HYDROcodone/APAP 5-325MG 1 EACH TAB PO STA (18:30)
[2024-06-30] MEDS: LABETALOL 5 MG/ML VIAL MDV IVP STA ×3 (18:31→21:53)
[2024-06-30 18:38] LABS: INR 0.9 (<1.2); Partial Thromboplastin Time 23.7 sec (22.0-30.0); Prothrombin Time 9.8 sec (10.0-12.5)
--- NOTE | 2024-06-30 19:18 | XR ---
EXAMINATION TYPE: XR chest 2V DATE OF EXAM: 06/30/2024 6:42 PM COMPARISON: 12/08/2019 CLINICAL INDICATION: Male, 33 years old with history of Chest Pain, TECHNIQUE: XR chest 2V view(s) obtained. FINDINGS: The heart size is normal. The pulmonary vasculature is normal. The lungs are clear. IMPRESSION: 1. No acute pulmonary process. [facility], , 06/30/2024 7:16 PM
[2024-06-30] MEDS: NITROGLYCERIN SL TABS 0.4 MG TAB SUBLINGUAL PRN (19:50)
[2024-06-30] MEDS: NITROGLYCERIN OINT 1 INCH/GM PACKET TOPICAL STA (21:05)
[2024-06-30] MEDS ORDERED: NALOXONE 0.4 MG/ML 1 ML VIAL IV PRN (22:29)
[2024-06-30] MEDS: cloNIDine 0.3 MG/24HR PATCH TRANSDERM SCH (22:54)
[2024-06-30] MEDS: niCARdipine 20 MG in SODIUM CHLORIDE 0.9% 192 ML IV SCH (22:55)
[2024-07-01 01:00] LABS: Glucose,Whole Blood 119 mg/dL (70-110)
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
[2024-07-01] MEDS: CLEVIDIPINE BUTYRATE 25 MG in EMPTY BAG 1 BAG IV SCH (01:52)
[2024-07-01] MEDS: HYDROcodone/APAP 5-325MG 1 EACH TAB PO PRN (02:45)
[2024-07-01 04:44] LABS: Appearance,Urine Clear (Clear); Bilirubin,Urine Negative (Negative); Blood,Urine Small (Negative); Color,Urine Colorless; Glucose,Urine (UA) Trace (Negative); Hyaline Casts,Urine 1 /lpf (0-2); Ketones,Urine Negative (Negative); Leukocyte Esterase,Urine Negative (Negative); Nitrite,Urine Negative (Negative); Protein,Urine 2+ (Negative); RBC,Urine 1 /hpf (0-5); Specific Gravity,Urine 1.013 (1.001-1.035); Squamous Epithelial Cell,Urine <1 /hpf (0-4); Urobilinogen,Urine <2.0 mg/dL (<2.0); WBC,Urine 1 /hpf (0-5)
[2024-07-01 06:11] LABS: Basophils # (A) 0.04 10*3/uL (0.00-0.10); Basophils % (A) 0.5 %; Eosinophils # (A) 0.02 10*3/uL (0.04-0.35); Eosinophils % (A) 0.2 %; HGB 12.8 g/dL (13.0-17.0); Lymphocytes # (A) 1.62 10*3/uL (0.90-5.00); Lymphocytes % (A) 19.2 %; MCH 23.1 pg (27.0-32.0); MCHC 31.2 g/dL (32.0-37.0); MCV 74.1 fL (80.0-97.0); Monocytes # (A) 0.76 10*3/uL (0.20-1.00); Neutrophils # (A) 5.96 10*3/uL (1.80-7.70); Neutrophils % (A) 70.9 %; Platelet Count 165 10*3/uL (140-440); RBC 5.53 10*6/uL (4.40-5.60); RDW 13.6 % (11.5-14.5); WBC 8.42 10*3/uL (4.50-10.00)
[2024-07-01 06:35] LABS: ALT 34 U/L (4-49); AST 35 U/L (17-59); African American GFR (CKD) 32 (>60 ml/min/1.73 sqM); Alkaline Phosphatase 67 U/L (38-126); Anion Gap 7 mmol/L; Blood Urea Nitrogen 31 mg/dL (9-20); Carbon Dioxide 28 mmol/L (22-30); Chloride 102 mmol/L (98-107); Glucose 123 mg/dL (74-99); Magnesium 2.2 mg/dL (1.6-2.3); Non-African American GFR(CKD) 28 (>60 ml/min/1.73 sqM); Phosphorus 4.7 mg/dL (2.5-4.5); Potassium 3.8 mmol/L (3.5-5.1); Sodium 137 mmol/L (137-145); Total Bilirubin 1.1 mg/dL (0.2-1.3); Total Protein 6.7 g/dL (6.3-8.2)
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
[2024-07-01] MEDS: PANTOPRAZOLE 40 MG/10 ML VIAL IV SCH (08:06)
[2024-07-01] MEDS: amLODIPine 5 MG TAB PO SCH (08:07)
[2024-07-01] MEDS: MORPHINE SULFATE 4 MG/ML SYRINGE IV PRN (08:10)
[2024-07-01] MEDS ORDERED: ONDANSETRON 4 MG/2 ML VIAL IVP PRN (08:35)
--- NOTE | 2024-07-01 10:36 | US ---
EXAMINATION TYPE: US renal artery duplex complete DATE OF EXAM: 07/01/2024 COMPARISON: NONE CLINICAL INDICATION: Male, 33 years old with history of rule out renal artery stenosis; Patient had t est 2 years ago - negative, patient has not been taking BP meds for 2 years TECHNIQUE: Grayscale, color Doppler and spectral Doppler imaging of the bilateral renal arteries and kidneys. FINDINGS: MEASUREMENTS: RENAL SIZE: Right Kidney: 10.1 x 4.5 x 4.5cm Left Kidney: 11.0 x 3.9 x 5.6cm Right Kidney: No hydronephrosis or lesions seen Left Kidney: No hydronephrosis or lesions seen Abd Aorta: No AAA visualized RESISTANCE INDEX Right: 0.7 Left: 0.8 RA/AO RATIO (< 3.5 ) Right: 0.5 Left: 1.3 RENAL ARTERY VELOCITY ( < 180 cm/s) Right: 46.2 Left: 116.4 Specialty Sales Consultant Notes: Challenging exam due to habitus and bowel gas, no obvious stenosis seen Appropriate color Doppler flow and spectral waveforms to the kidneys bilaterally. Grayscale imaging of the kidneys and show no evidence for hydronephrosis or mass. No renal calculi or cysts visualized. IMPRESSION: Limited exam as above. No convincing sonographic/Doppler evidence for renal artery stenosis on either side. [facility], , 07/01/2024 10:34 AM
[2024-07-01] MEDS: amLODIPine 5 MG TAB PO STA (10:39)
[2024-07-01] MEDS: VALSARTAN 160 MG TAB PO SCH (10:39)
[2024-07-01] MEDS: hydroCHLOROthiazide 25 MG TAB PO SCH (10:39)
[2024-07-01] MEDS: METOPROLOL TARTRATE 50 MG TAB PO SCH (10:39)
[2024-07-01] MEDS ORDERED: hydrALAZINE HCL 50 MG TAB PO SCH (10:45)
[2024-07-01] MEDS ORDERED: carvediloL 6.25 MG TAB PO SCH (10:45)
[2024-07-01] MEDS: carvediloL 12.5 MG TAB PO SCH (10:49)
[2024-07-01] MEDS: hydrALAZINE HCL 50 MG TAB PO SCH (10:50)
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
--- NOTE | 2024-07-01 13:00 | CA ---
Transthoracic Echo Report Name: Antonio Barillas Age: 33 Gender: M : 1990 Exam Date: 07/01/2024 08:09 Exam Location: [facility] Ht (in): 67 Wt (lb): 280 Ordering Physician: Ky Sarabia Attending/Referring Phys: Recreational Therapy Technician Mari Montesinos RDCS Procedure CPT: Indications: evaluate LV function, Other hypertrophic cardiomyopathy Cardiac Hx: Technical Quality: Fair Contrast 1: Total Dose (mL): Contrast 2: Total Dose (mL): MEASUREMENTS (Male / Female) Normal Values 2D ECHO LV Diastolic Diameter PLAX 5.1 cm 4.2 - 5.9 / 3.9 - 5.3 cm LV Systolic Diameter PLAX 3.5 cm IVS Diastolic Thickness 1.9 cm 0.6 - 1.0 / 0.6 - 0.9 cm LVPW Diastolic Thickness 1.8 cm 0.6 - 1.0 / 0.6 - 0.9 cm LV Relative Wall Thickness 0.7 LA Systolic Diameter LX 3.6 cm 3.0 - 4.0 / 2.7 - 3.8 cm RV Diastolic Mid Diameter 4.1 cm 2.7 - 3.3 cm M-MODE Aortic Root Diameter MM 3.6 cm DOPPLER AV Peak Velocity 184.5 cm/s AV Peak Gradient 13.6 mmHg Mitral E Point Velocity 110.5 cm/s Mitral A Point Velocity 126.4 cm/s Mitral E to A Ratio 0.9 MV Deceleration Time 218.5 ms MV E' Velocity 6.6 cm/s Mitral E to MV E' Ratio 16.7 FINDINGS Left Ventricle Left ventricular ejection fraction is estimated at 65-70 %. Left ventricular cavity size normal. Severe concentric left ventricular hypertrophy. Right Ventricle . Unable to estimate the right ventricular systolic pressure.right ventricle not well visualized. Right Atrium Right atrium not well visualized. Left Atrium Normal left atrial size. No left atrial thrombus or mass present. Mitral Valve Structurally normal mitral valve. No mitral stenosis, regurgitation or prolapse. Aortic Valve Trileaflet aortic valve. No aortic valve stenosis or regurgitation. Tricuspid Valve Structurally normal tricuspid valve. No tricuspid stenosis, regurgitation or prolapse. Pulmonic Valve Pulmonic valve not well visualized. No pulmonic regurgitation. Pericardium No pericardial effusion. Aorta Normal size aortic root and proximal ascending aorta. CONCLUSIONS LVEF 65 to 70% Severe concentric LVH Increased gradients noticed in LVOT No significant valvular dysfunction No significant chamber size abnormality Consider repeating echocardiogram with Valsalva provoked or stress provoked LVOT gradients, and consider hypertrophic cardiomyopathy workup. Previewed by: Dr Bryan Batista (Electronically Signed) Final Date: 01 July 2024 12:59
[2024-07-01 15:55] LABS: Hepatitis B Surface Antigen Nonreactive (Nonreactive); Hepatitis C IgG Antibody Nonreactive (Nonreactive)
[2024-07-01 16:17] LABS: Hepatitis B Surface AB- Quant 3.5 mIU/mL
--- NOTE | 2024-07-01 16:27 | P.CRDCN ---
History of Present Illness History of present illness: HISTORY OF PRESENTING ILLNESS This is a pleasant 33-year-old with past medical history significant for hypertension, chronic kidney disease. He states he has not been taking his medications for the last 4 months secondary to expense. He has a history of hypertension apparently from the time of COVID and blood pressure he believes was more controlled 4 months ago in the 140s over 90s however has not been taking medications. He presented secondary to left jaw pain and denies any chest pain or pressure or significant shortness of breath. He states otherwise he has been feeling okay. He was found to have extremely elevated blood pressure in the 250s over 140s and placed on Cleviprex drip and admitted to ICU. Amlodipine, carvedilol, hydralazine were initiated. He is normally on combination hydrochlorothiazide and ARB with amlodipine. ARB has been held secondary to acute kidney injury, possible progression of chronic kidney disease. Echocardiogram performed with severe LVH and normal left ventricular function. REVIEW OF SYSTEMS At the time of my exam: CONSTITUTIONAL: Denies fever or chills. CARDIOVASCULAR: Denies chest pain, shortness of breath, orthopnea, PND or palpi tations. RESPIRATORY: Denies cough. GASTROINTESTINAL: Denies abdominal pain, diarrhea, constipation, nausea or vomiting. MUSCULOSKELETAL: Denies myalgias. NEUROLOGIC: Denies numbness, tingling or weakness. ENDOCRINE: Denies fatigue, weight change, polydipsia or polyurina. GENITOURINARY: Denies burning, hematuria or urgency with micturation. HEMATOLOGIC: Denies history of anemia or bleeding. PHYSICAL EXAMINATION Vital signs reviewed. CONSTITUTIONAL: No apparent distress. HEENT: Head is normocephalic. Pupils are equal, round. Sclerae anicteric. Mucous membranes of the mouth are moist. No JVD. No carotid bruit. CHEST EXAMINATION: Lungs are clear to auscultation. No chest wall tenderness is noted on palpation or with deep breathing. HEART EXAMINATION: Regular rate and rhythm. S1, S2 heard. No murmurs, gallops or rub. ABDOMEN: Soft, nontender. Positive bowel sounds. EXTREMITIES: 2+ peripheral pulses, no lower extremity edema and no calf tenderness. NEUROLOGIC EXAMINATION: Patient is awake, alert and oriented x3. ASSESSMENT Hypertensive emergency Jaw pain may be related to angina from uncontrolled hypertension Non-STEMI type II mechanism related to hypertension, chronic kidney disease Acute kidney injury versus progression to chronic kidney disease Severe LVH Medical noncompliance PLAN Evaluate for secondary causes of hypertension. Renal ultrasound shows no significant stenosis however ideally an angiogram. No evidence of coarctation on echo however again ideally would benefit from an angiogram to rule out Coarctation as well. Check blood test including aldosterone levels, renin, cortisol. Continue with current blood pressure regimen however patient may benefit from a diuretic and likely add diuretic tomorrow pending nephrology input. Discussed importance of medical compliance. Patient understanding. Past Medical History Past Medical History: Hypertension, Sleep Apnea/CPAP/BIPAP Additional Past Medical History / Comment(s): [place] with no cpap History of Any Multi-Drug Resistant Organisms: None Reported Past Surgical History: No Surgical Hx Reported Past Anesthesia/Blood Transfusion Reactions: No Reported Reaction Past Psychological History: No Psychological Hx Reported Smoking Status: Current every day smoker Past Alcohol Use History: Occasional Past Drug Use History: Marijuana - Past Family History Mother Family Medical History: No Reported History Medications and Allergies Home Medications Medication Instructions Recorded Confirmed Type Amlodipine/Valsartan/Hcthiazid 1 each PO DAILY 07/01/24 07/01/24 History [Njqah-Orgai-Yxvf 10-320-25 mg] Metoprolol Tartrate [Lopressor] 100 mg PO DAILY 07/01/24 07/01/24 History Allergies Allergy/AdvReac Type Severity Reaction Status Date / Time No Known Allergies Allergy Verified 07/01/24 07:40 Physical Exam Vitals: Vital Signs Temp Pulse Resp BP Pulse Ox 07/01/24 16:00 97.4 F L 85 14 164/102 95 07/01/24 15:45 80 23 163/106 93 L 07/01/24 15:30 82 18 154/95 92 L 07/01/24 15:15 84 20 156/113 95 07/01/24 15:00 18 156/99 94 L 07/01/24 14:45 84 18 156/98 94 L 07/01/24 14:30 84 18 154/103 93 L 07/01/24 14:15 20 157/91 94 L 07/01/24 14:00 39 H 177/104 97 07/01/24 13:45 11 L 164/103 98 07/01/24 13:30 88 15 160/100 96 07/01/24 13:15 91 20 165/109 99 07/01/24 13:00 90 22 174/125 96 07/01/24 12:45 91 39 H 174/117 97 07/01/24 12:30 97 15 165/107 94 L 07/01/24 12:15 18 186/110 97 07/01/24 12:00 97.6 F 102 H 20 190/107 98 07/01/24 11:45 100 28 H 184/116 97 07/01/24 11:30 105 H 10 L 153/91 93 L 07/01/24 11:15 105 H 25 H 180/126 96 07/01/24 11:00 103 H 32 H 187/121 96 07/01/24 10:45 121 H 16 182/120 98 07/01/24 10:30 108 H 53 H 171/111 93 L 07/01/24 10:15 35 H 182/113 98 07/01/24 10:00 21 189/121 98 07/01/24 09:45 104 H 18 189/107 98 07/01/24 09:30 109 H 16 173/113 98 07/01/24 09:15 109 H 12 180/114 97 07/01/24 09:00 105 H 9 L 170/114 96 07/01/24 08:45 108 H 15 194/121 98 07/01/24 08:30 109 H 13 191/124 97 07/01/24 08:15 103 H 11 L 199/130 99 07/01/24 08:00 97.6 F 98 14 177/133 99 07/01/24 07:45 101 H 30 H 176/109 96 07/01/24 07:30 93 24 173/109 95 07/01/24 07:15 94 9 L 184/102 99 07/01/24 07:00 104 H 18 169/102 99 07/01/24 06:50 105 H 21 162/112 94 L 07/01/24 06:40 103 H 20 192/117 94 L 07/01/24 06:30 103 H 21 194/118 93 L 07/01/24 06:20 104 H 35 H 194/118 95 07/01/24 06:10 25 H 187/133 96 07/01/24 06:00 103 H 10 L 199/121 97 07/01/24 05:45 98 14 196/119 97 07/01/24 05:30 102 H 14 171/94 98 07/01/24 05:15 98 19 155/89 93 L 07/01/24 05:00 18 172/92 92 L 07/01/24 04:45 96 16 174/104 93 L 07/01/24 04:30 101 H 20 170/114 96 07/01/24 04:15 105 H 15 160/100 98 07/01/24 04:00 94 11 L 167/95 98 07/01/24 03:45 97 17 172/99 98 07/01/24 03:30 96 12 171/110 97 07/01/24 03:15 97 25 H 178/108 97 07/01/24 03:00 98 12 177/114 98 07/01/24 02:45 102 H 12 181/110 98 07/01/24 02:30 98 14 176/119 97 07/01/24 02:15 100 11 L 176/112 98 07/01/24 02:00 101 H 10 L 179/112 97 07/01/24 01:45 107 H 12 182/132 98 07/01/24 01:30 108 H 12 183/117 99 07/01/24 01:15 97.3 F L 107 H 16 176/114 99 07/01/24 00:39 98.6 F 97 16 194/104 97 07/01/24 00:16 96 16 181/121 96 06/30/24 23:24 96 18 180/107 96 06/30/24 22:23 80 18 211/137 99 06/30/24 21:20 92 18 216/143 99 06/30/24 20:00 91 18 242/161 98 06/30/24 19:54 90 18 199/151 99 06/30/24 19:46 81 18 238/160 97 06/30/24 18:14 108 H 16 99 06/30/24 17:24 49 L 244/154 06/30/24 17:11 98.0 F 105 H 17 245/149 99 Intake and Output 07/01/24 07/01/24 07/01/24 06:59 14:59 22:59 Intake Total 459.386 0791.567 29.533 Output Total 800 650 0 Balance -102.934 604.567 29.533 Intake: Intake, IV Titration 217.066 174.567 29.533 Amount Clevidipine Butyrate 25 99.566 174.567 29.533 mg In Empty Bag 1 bag @ 1 MG/HR 2 mls/hr IV .Q24H [facility] Rx#:[id number] niCARdipine 20 mg In 117.5 Sodium Chloride 0.9% 192 ml @ 5 MG/HR 50 mls/hr IV .Q4H [facility] Rx#:[id number] Oral 480 1080 Output: Urine 800 650 0 Other: Voiding Method Urinal Urinal Urinal Weight 127.006 kg Results 07/01/24 05:27 07/01/24 05:27 Cardiac Enzymes 06/30/24 06/30/24 06/30/24 Range/Units 18:12 18:12 21:19 AST 35 (17-59) U/L Troponin I 0.069 H* 0.054 H* (0.000-0.034) ng/mL 07/01/24 Range/Units 05:27 AST 35 (17-59) U/L Troponin I (0.000-0.034) ng/mL Coagulation 06/30/24 Range/Units 18:12 PT 9.8 L (10.0-12.5) sec APTT 23.7 (22.0-30.0) sec CBC 06/30/24 07/01/24 Range/Units 18:12 05:27 WBC 7.03 8.42 (4.50-10.00) 10*3/uL RBC 5.61 H 5.53 (4.40-5.60) 10*6/uL Hgb 13.0 12.8 L (13.0-17.0) g/dL Hct 41.3 41.0 (39.6-50.0) % Plt Count 117 L 165 (140-440) 10*3/uL Comprehensive Metabolic Panel 06/30/24 07/01/24 Range/Units 18:12 05:27 Sodium 138 137 (137-145) mmol/L Potassium 3.5 3.8 (3.5-5.1) mmol/L Chloride 104 102 (98-107) mmol/L Carbon Dioxide 26 28 (22-30) mmol/L BUN 37 H 31 H (9-20) mg/dL Creatinine 2.94 H 2.85 H (0.66-1.25) mg/dL Glucose 110 H 123 H (74-99) mg/dL Calcium 8.8 9.0 (8.4-10.2) mg/dL AST 35 35 (17-59) U/L ALT 35 34 (4-49) U/L Alkaline Phosphatase 74 67 (38-126) U/L Total Protein 6.6 6.7 (6.3-8.2) g/dL Albumin 4.0 4.0 (3.5-5.0) g/dL Current Medications Generic Name Dose Route Start Last Admin Trade Name Freq PRN Reason Stop Dose Admin Acetaminophen 650 mg 07/01/24 02:40 Acetaminophen Tab 325 Mg Tab PO Q6HR PRN Mild Pain (Scale 1 to 3) Hydrocodone Bitart/Acetaminophen 1 each 07/01/24 02:40 07/01/24 12:38 Hydrocodone/Apap 5-325mg 1 Each Tab PO 1 each Q6HR PRN Administration Moderate Pain (Scale 4 to 6) Amlodipine Besylate 10 mg 07/02/24 09:00 Amlodipine 10 Mg Tab PO DAILY [facility] Carvedilol 25 mg 07/01/24 17:30 07/01/24 10:49 Carvedilol 12.5 Mg Tab PO 25 mg BID-W/MEALS [facility] Administration Clonidine HCl 1 patch 06/30/24 22:45 06/30/24 22:54 Clonidine 0.3 Mg/24hr Patch TRANSDERM 1 patch Q7D [facility] Administration Hydralazine HCl 100 mg 07/01/24 16:00 07/01/24 10:50 Hydralazine Hcl 50 Mg Tab PO 100 mg TID [facility] Administration Clevidipine 25 mg/ IV Solution 50 mls @ 2 mls/hr 07/01/24 02:00 07/01/24 15:40 IV 8 mg/hr .Q24H [facility] 16 mls/hr Titration Protocol 1 MG/HR Morphine Sulfate 4 mg 06/30/24 22:29 07/01/24 08:10 Morphine Sulfate 4 Mg/Ml Syringe IV 4 mg Q3HR PRN Administration Severe Pain (Scale 7 to 10) Naloxone HCl 0.2 mg 06/30/24 22:29 Naloxone 0.4 Mg/Ml 1 Ml Vial IV Q2M PRN Opioid Reversal Nitroglycerin 0.4 mg 06/30/24 19:05 06/30/24 20:02 Nitroglycerin Sl Tabs 0.4 Mg Tab SUBLINGUAL 0.4 mg Q5M PRN Administration Chest Pain Ondansetron HCl 4 mg 07/01/24 08:35 Ondansetron 4 Mg/2 Ml Vial IVP Q6HR PRN Nausea And Vomiting Pantoprazole Sodium 40 mg 07/01/24 09:00 07/01/24 08:06 Pantoprazole 40 Mg/10 Ml Vial IV 40 mg DAILY [facility] Administration Intake and Output 07/01/24 07/01/24 07/01/24 06:59 14:59 22:59 Intake Total 904.341 7897.567 29.533 Output Total 800 650 0 Balance -102.934 604.567 29.533 Intake: Intake, IV Titration 217.066 174.567 29.533 Amount Clevidipine Butyrate 25 99.566 174.567 29.533 mg In Empty Bag 1 bag @ 1 MG/HR 2 mls/hr IV .Q24H [facility] Rx#:[id number] niCARdipine 20 mg In 117.5 Sodium Chloride 0.9% 192 ml @ 5 MG/HR 50 mls/hr IV .Q4H [facility] Rx#:[id number] Oral 480 1080 Output: Urine 800 650 0 Other: Voiding Method Urinal Urinal Urinal Weight 127.006 kg 07/01/24 05:27 07/01/24 05:27
[2024-07-01 19:39] LABS: Anti-DNA, DS unit <1.0 IU/mL; DNA Double-Stranded Negative (Negative)
[2024-07-02 06:05] LABS: African American GFR (CKD) 31 (>60 ml/min/1.73 sqM); Anion Gap 5 mmol/L; Blood Urea Nitrogen 31 mg/dL (9-20); Carbon Dioxide 28 mmol/L (22-30); Chloride 104 mmol/L (98-107); Glucose 94 mg/dL (74-99); Non-African American GFR(CKD) 27 (>60 ml/min/1.73 sqM); Potassium 3.4 mmol/L (3.5-5.1); Sodium 137 mmol/L (137-145)
[2024-07-02] MEDS: amLODIPine 10 MG TAB PO SCH (08:15)
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
[2024-07-02] MEDS: SPIRONOLACTONE 25 MG TAB PO SCH (11:12)
--- NOTE | 2024-07-02 11:21 | P.PN ---
Subjective Patient is seen for follow-up for acute kidney injury, chronic kidney disease and hypertensive emergency. He remains on Cleviprex drip. Oral medications were started yesterday. Blood pressure has improved but still remains high with systolic 158-166 and diastolic of about 99 to 109 mmHg. Maintained on full doses of Norvasc Coreg clonidine and hydralazine. Agree with workup for secondary hypertension. Add plasma free metanephrines to aldosterone renin levels. Patient does have history of obstructive sleep apnea therefore I will add Aldactone. No significant complaints today. Objective - Vital Signs Vital signs: Vital Signs Temp 97.4 F L 07/02/24 08:00 Pulse 82 07/02/24 10:00 Resp 20 07/02/24 11:00 BP 152/99 07/02/24 11:00 Pulse Ox 98 07/02/24 11:00 FiO2 Intake & Output 07/01/24 07/02/24 07/02/24 18:59 06:59 18:59 Intake Total 1774.066 238.567 944.400 Output Total 900 1000 Balance 874.066 -761.433 944.400 Weight 127.9 kg Intake: Intake, IV Titration 244.066 38.567 44.400 Amount Clevidipine Butyrate 25 244.066 38.567 44.400 mg In Empty Bag 1 bag @ 1 MG/HR 2 mls/hr IV .Q24H [facility] Rx#:[id number] Oral 1530 200 900 Output: Urine 900 1000 Other: Voiding Method Urinal Urinal Urinal - Exam Patient is awake, comfortable, no acute distress Left incisor is loose Examination of the heart S1 and S2 Examination of the lungs bilateral breath sounds are heard Abdomen is soft nontender Examination of lower extremities shows no evidence of edema METERMAN exam grossly intact - Labs CBC & Chem 7: 07/01/24 05:27 07/02/24 05:33 Labs: Abnormal Lab Results - Last 24 Hours (Table) 07/02/24 Range/Units 05:33 Potassium 3.4 L (3.5-5.1) mmol/L BUN 31 H (9-20) mg/dL Creatinine 2.91 H (0.66-1.25) mg/dL Assessment and Plan Assessment: 1. Acute kidney injury associated with severely uncontrolled hypertension with possible progression of underlying chronic kidney disease. Nonoliguric. Ultras ound of the kidneys is unremarkable 2. Hypertensive emergency secondary to patient not having taken any medications for 4 months now. Currently maintained on Cleviprex drip and restarted on oral medications. Agree with holding angiotensin receptor blockers for now. Renal artery duplex was unremarkable however it is not an ideal test for renal artery stenosis. Patient will need renal angiogram which can be done down the road as outpatient if blood pressure remains uncontrolled. Patient reports that his blood pressure was well-controlled when he has been taking his medications. Since patient remains on Cleviprex drip along with full doses of 3 oral medications, agree with workup for secondary causes. Add Aldactone due to history of obstructive sleep apnea. If blood pressure remains uncontrolled we can resume angiotensin receptor blockers as well. 3. Chronic kidney disease stage II with previous creatinine 1.3 to 1.4 mg/dL in 2020. Probable worsening of renal function associated with uncontrolled hypertension over the last few months. UA shows 2+ protein workup for proteinuria will be ordered. Patient will need outpatient follow-up and may need a kidney biopsy if renal function does not improve. Rule out underlying FSGS. Serologies negative thus far. 4. History of marijuana use Plan: Continue to wean off Cleviprex. Add plasma free metanephrine levels to aldosterone and renin levels Add Aldactone Replace potassium Restart angiotensin receptor blockers tomorrow if blood pressure remains uncontrolled.
[2024-07-02 13:27] LABS: C-ANCA <1:20 Titer (<1:20)
--- NOTE | 2024-07-02 14:41 | P.PN ---
Subjective HISTORY OF PRESENTING ILLNESS This is a pleasant 33-year-old with past medical history significant for hypertension, chronic kidney disease. He states he has not been taking his medications for the last 4 months secondary to expense. He has a history of hypertension apparently from the time of COVID and blood pressure he believes was more controlled 4 months ago in the 140s over 90s however has not been taking medications. He presented secondary to left jaw pain and denies any chest pain or pressure or significant shortness of breath. He states otherwise he has been feeling okay. He was found to have extremely elevated blood pressure in the 250s over 140s and placed on Cleviprex drip and admitted to ICU. Amlodipine, carvedilol, hydralazine were initiated. He is normally on combination hydrochlorothiazide and ARB with amlodipine. ARB has been held secondary to acute kidney injury, possible progression of chronic kidney disease. Echocardiogram performed with severe LVH and normal left ventricular function. 07/02 Patient seen and examined. Patient denies any chest pain or pressure. Cleviprex stopped however blood pressure 1 from 150s up to 180s over 120s. Additionally Aldactone was added and blood pressure still not at goal. Creatinine remained stable. Still making good urine. PHYSICAL EXAMINATION Vital signs reviewed. CONSTITUTIONAL: No apparent distress. HEENT: Head is normocephalic. Pupils are equal, round. Sclerae anicteric. Mucous membranes of the mouth are moist. No JVD. No carotid bruit. CHEST EXAMINATION: Lungs are clear to auscultation. No chest wall tenderness is noted on palpation or with deep breathing. HEART EXAMINATION: Regular rate and rhythm. S1, S2 heard. No murmurs, gallops or rub. ABDOMEN: Soft, nontender. Positive bowel sounds. EXTREMITIES: 2+ peripheral pulses, no lower extremity edema and no calf tenderness. NEUROLOGIC EXAMINATION: Patient is awake, alert and oriented x3. ASSESSMENT Hypertensive emergency Jaw pain may be related to angina from uncontrolled hypertension Non-STEMI type II mechanism related to hypertension, chronic kidney disease Acute kidney injury versus progression to chronic kidney disease Severe LVH Medical noncompliance PLAN Evaluate for secondary causes of hypertension. Renal ultrasound shows no significant stenosis however ideally an angiogram. No evidence of coarctation on echo however again ideally would benefit from an angiogram to rule out Coarctation as well. JUDI's not available however discussed with nurse to check upper and lower extremity BP's. Await aldosterone levels, renin Still uncontrolled hypertension and add diuretic at least x 1 with Lasix. Monitor response Objective - Vital Signs Vital signs: Vital Signs Temp 97.4 F L 07/02/24 12:00 Pulse 81 07/02/24 13:15 Resp 26 H 07/02/24 13:15 BP 153/90 07/02/24 13:15 Pulse Ox 93 L 07/02/24 13:15 FiO2 Intake & Output 07/01/24 07/02/24 07/02/24 18:59 06:59 18:59 Intake Total 1774.066 238.567 971.300 Output Total 900 1000 300 Balance 874.066 -761.433 671.300 Weight 127.9 kg Intake: Intake, IV Titration 244.066 38.567 71.300 Amount Clevidipine Butyrate 25 244.066 38.567 71.300 mg In Empty Bag 1 bag @ 1 MG/HR 2 mls/hr IV .Q24H [facility] Rx#:[id number] Oral 1530 200 900 Output: Urine 900 1000 300 Other: Voiding Method Urinal Urinal Urinal - Labs CBC & Chem 7: 07/01/24 05:27 07/02/24 05:33 Labs: Abnormal Lab Results - Last 24 Hours (Table) 07/02/24 Range/Units 05:33 Potassium 3.4 L (3.5-5.1) mmol/L BUN 31 H (9-20) mg/dL Creatinine 2.91 H (0.66-1.25) mg/dL
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
[2024-07-02] MEDS: FUROSEMIDE 10 MG/ML 10 ML VIAL IV STA (15:53)
--- NOTE | 2024-07-02 16:51 | US ---
EXAMINATION TYPE: US arterial LE single level DATE OF EXAM: 07/02/2024 4:29 PM COMPARISONS: None. CLINICAL INDICATION: Male, 33 years old with history of JUDI (ankle brachial index); JUDI per order TECHNIQUE: Systolic pressures were taken of the upper and lower extremity arteries with ankle-brachia l indices and toe brachial indices calculated bilaterally. History of: Smoker: Current Hypertension: Yes Diabetic: No Hyperlipidemia: No TIA/CVA: No Previous Vascular Surgery: No ND: NO Vascular Ulcers: No Claudication: No Gangrene: No FINDINGS: Doppler Waveforms: Right: Multiphasic Left: Multiphasic Brachial Artery systolic pressure: Right: Deferred due to IV Left: 194 Posterior Tibial artery systolic pressure: Right: 224 Left: CNO Dorsalis Pedis artery systolic pressure: Right: CNO Left: 215 Ankle-Brachial Indices: Right: 1.15 Left: 1.11 IMPRESSION: JUDI: Right: Normal 0.9 - 1.4, Recommendation: None Left: Normal 0.9 - 1.4, Recommendation: None [facility], , 07/02/2024 4:48 PM
[2024-07-03 06:07] LABS: Basophils # (A) 0.04 10*3/uL (0.00-0.10); Basophils % (A) 0.6 %; Eosinophils % (A) 1.5 %; Immature Platelet Fraction 7.3 % (1.1-6.1); Lymphocytes # (A) 2.07 10*3/uL (0.90-5.00); Lymphocytes % (A) 31.6 %; MCH 22.2 pg (27.0-32.0); MCV 73.9 fL (80.0-97.0); Mean Platelet Volume 11.1 fL (9.5-12.2); Monocytes # (A) 0.94 10*3/uL (0.20-1.00); Monocytes % (A) 14.4 %; Neutrophils # (A) 3.39 10*3/uL (1.80-7.70); Neutrophils % (A) 51.7 %; Platelet Count 168 10*3/uL (140-440); RBC 5.41 10*6/uL (4.40-5.60); RDW 13.8 % (11.5-14.5); WBC 6.55 10*3/uL (4.50-10.00)
[2024-07-03 07:06] LABS: African American GFR (CKD) 27 (>60 ml/min/1.73 sqM); Anion Gap 7 mmol/L; Blood Urea Nitrogen 37 mg/dL (9-20); Calcium 9.6 mg/dL (8.4-10.2); Carbon Dioxide 27 mmol/L (22-30); Chloride 103 mmol/L (98-107); Glucose 91 mg/dL (74-99); Non-African American GFR(CKD) 23 (>60 ml/min/1.73 sqM); Potassium 3.7 mmol/L (3.5-5.1); Sodium 137 mmol/L (137-145)
[2024-07-03] MEDS: HEPARIN SODIUM,PORCINE 5,000 UNIT/ML 1 ML VIAL SQ SCH (08:16)
[2024-07-03] MEDS: SPIRONOLACTONE 25 MG TAB PO SCH (08:16)
[2024-07-03] MEDS: ACETAMINOPHEN TAB 325 MG TAB PO PRN (08:24)
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
--- NOTE | 2024-07-03 12:44 | P.PN ---
Subjective HISTORY OF PRESENTING ILLNESS This is a pleasant 33-year-old with past medical history significant for hypertension, chronic kidney disease. He states he has not been taking his medications for the last 4 months secondary to expense. He has a history of hypertension apparently from the time of COVID and blood pressure he believes was more controlled 4 months ago in the 140s over 90s however has not been taking medications. He presented secondary to left jaw pain and denies any chest pain or pressure or significant shortness of breath. He states otherwise he has been feeling okay. He was found to have extremely elevated blood pressure in the 250s over 140s and placed on Cleviprex drip and admitted to ICU. Amlodipine, carvedilol, hydralazine were initiated. He is normally on combination hydrochlorothiazide and ARB with amlodipine. ARB has been held secondary to acute kidney injury, possible progression of chronic kidney disease. Echocardiogram performed with severe LVH and normal left ventricular function. 07/02 Patient seen and examined. Patient denies any chest pain or pressure. Cleviprex stopped however blood pressure 1 from 150s up to 180s over 120s. Additionally Aldactone was added and blood pressure still not at goal. Creatinine remained stable. Still making good urine. 07/03 Patient seen and examined. Patient denies any chest pain or pressure. Cleviprex was briefly stopped yesterday however blood pressure went back up and therefore it was restarted. Cleviprex again was stopped this morning. He was given Lasix yesterday with what he states was significant urine output. Creatinine mildly increased up to 3.1. Aldosterone 34, renin 27. PHYSICAL EXAMINATION Vital signs reviewed. CONSTITUTIONAL: No apparent distress. HEENT: Head is normocephalic. Pupils are equal, round. Sclerae anicteric. Mucous membranes of the mouth are moist. No JVD. No carotid bruit. CHEST EXAMINATION: Lungs are clear to auscultation. No chest wall tenderness is noted on palpation or with deep breathing. HEART EXAMINATION: Regular rate and rhythm. S1, S2 heard. No murmurs, gallops or rub. ABDOMEN: Soft, nontender. Positive bowel sounds. EXTREMITIES: 2+ peripheral pulses, no lower extremity edema and no calf tendern ess. NEUROLOGIC EXAMINATION: Patient is awake, alert and oriented x3. ASSESSMENT Hypertensive emergency Jaw pain may be related to angina from uncontrolled hypertension Non-STEMI type II mechanism related to hypertension, chronic kidney disease Acute kidney injury versus progression to chronic kidney disease Severe LVH Medical noncompliance PLAN Evaluate for secondary causes of hypertension. Renal ultrasound shows no significant stenosis however ideally an angiogram. ABIs normal and no evidence of coarctation Aldosterone and renin level normal Spironolactone was increased and blood pressures are somewhat more normal. Hopeful discharge in 24 hours if blood pressures remain somewhat stable. Objective - Vital Signs Vital signs: Vital Signs Temp 96.0 F L 07/03/24 08:00 Pulse 80 07/03/24 09:00 Resp 24 07/03/24 09:00 BP 150/99 07/03/24 09:00 Pulse Ox 92 L 07/03/24 09:00 FiO2 Intake & Output 07/02/24 07/03/24 07/03/24 18:59 06:59 18:59 Intake Total 1175.300 200 540 Output Total 1000 2100 225 Balance 175.300 -1900 315 Weight 128.2 kg Intake: IV 20 Invasive Line 2 10 Invasive Line 3 10 Intake, IV Titration 75.300 Amount Clevidipine Butyrate 25 75.300 mg In Empty Bag 1 bag @ 1 MG/HR 2 mls/hr IV .Q24H [facility] Rx#:[id number] Oral 1100 200 520 Output: Urine 1000 2100 225 Other: Voiding Method Urinal Urinal Urinal # Voids 1 # Bowel Movements 1 1 - Labs CBC & Chem 7: 07/03/24 05:28 07/03/24 05:28 Labs: Abnormal Lab Results - Last 24 Hours (Table) 07/03/24 07/03/24 Range/Units 05:28 05:28 Hgb 12.0 L (13.0-17.0) g/dL MCV 73.9 L (80.0-97.0) fL MCH 22.2 L (27.0-32.0) pg MCHC 30.0 L (32.0-37.0) g/dL Immature Plt Fraction 7.3 H (1.1-6.1) % BUN 37 H (9-20) mg/dL Creatinine 3.30 H (0.66-1.25) mg/dL
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
[2024-07-03] MEDS: LOSARTAN 25 MG TAB PO SCH (17:03)
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
[2024-07-04] MEDS: cloNIDine HCL 0.1 MG TAB PO SCH (00:58)
[2024-07-04 04:50] LABS: African American GFR (CKD) 28 (>60 ml/min/1.73 sqM); Anion Gap 7 mmol/L; Blood Urea Nitrogen 35 mg/dL (9-20); Calcium 9.4 mg/dL (8.4-10.2); Carbon Dioxide 27 mmol/L (22-30); Chloride 101 mmol/L (98-107); Glucose 99 mg/dL (74-99); Non-African American GFR(CKD) 24 (>60 ml/min/1.73 sqM); Potassium 3.8 mmol/L (3.5-5.1); Sodium 135 mmol/L (137-145)
[2024-07-04] MEDS: SPIRONOLACTONE 25 MG TAB PO SCH (07:46)
[2024-07-04] MEDS: hydrALAZINE HCL 50 MG TAB PO SCH (07:46)
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
--- NOTE | 2024-07-04 11:28 | P.PN ---
Subjective Patient is seen for follow-up for acute kidney injury, chronic kidney disease and hypertensive emergency. Status post Cleviprex drip Blood pressure has improved today. Serum creatinine at 3.2 today Good urine output for the patient. No significant complaints. Objective - Vital Signs Vital signs: Vital Signs Temp 97.6 F 07/04/24 07:58 Pulse 88 07/04/24 07:58 Resp 16 07/04/24 07:58 BP 122/84 07/04/24 09:06 Pulse Ox 98 07/04/24 09:53 FiO2 21 07/03/24 23:07 Intake & Output 07/03/24 07/04/24 07/04/24 18:59 06:59 18:59 Intake Total 1080 20 20 Output Total 725 350 Balance 355 -330 20 Intake: IV 40 20 20 Invasive Line 2 20 10 10 Invasive Line 3 20 10 10 Oral 1040 Output: Urine 725 350 Other: Voiding Method Urinal Urinal Urinal # Voids 3 # Bowel Movements 1 - Exam Patient is awake, comfortable, no acute distress Left incisor is loose Examination of the heart S1 and S2 Examination of the lungs bilateral breath sounds are heard Abdomen is soft nontender Examination of lower extremities shows no evidence of edema GLASS [employer]POSITION T[employer]ER exam grossly intact - Labs CBC & Chem 7: 07/03/24 05:28 07/04/24 04:00 Labs: Abnormal Lab Results - Last 24 Hours (Table) 07/04/24 Range/Units 04:00 Sodium 135 L (137-145) mmol/L BUN 35 H (9-20) mg/dL Creatinine 3.22 H (0.66-1.25) mg/dL Assessment and Plan Assessment: 1. Acute kidney injury associated with severely uncontrolled hypertension with possible progression of underlying chronic kidney disease. Nonoliguric. Ultrasound of the kidneys is unremarkable 2. Hypertensive emergency secondary to patient not having taken any medications for 4 months now. Rule out secondary causes. Aldosterone is mildly above 30 but renin is not suppressed, therefore unlikely to be primary hyperaldosteronism. Renal artery duplex was unremarkable however it is not an ideal test for renal artery stenosis. Patient will need renal angiogram which can be done down the road as outpatient if blood pressure remains uncontrolled. Patient reports that his blood pressure was well-controlled when he has been taking his medications. Added Aldactone due to history of obstructive sleep apnea. Restarted angiotensin receptor blockers as blood pressure remains uncontrolled. Changed clonidine patch to oral clonidine and increase dose of hydralazine. Increase Aldactone as well. 3. Chronic kidney disease stage II with previous creatinine 1.3 to 1.4 mg/dL in 2020. Probable worsening of renal function associated with uncontrolled hypertension over the last few months. UA shows 2+ protein workup for proteinuria will be ordered. Patient will need outpatient follow-up and may need a kidney biopsy if renal function does not improve. Rule out underlying FSGS. Serologies negative thus far. 4. History of marijuana use Plan: Continue losartan Continue current dose of Aldactone, clonidine, hydralazine and Coreg along with Norvasc and losartan. Okay to discharge from nephrology standpoint Follow-up as outpatient in 1 week Avoid NSAIDs post discharge Patient is advised regarding the advanced kidney injury and possible progression of underlying chronic kidney disease and need for renal replacement therapy down the road.
--- NOTE | 2024-07-04 12:54 | P.PN ---
Subjective Progress Note Date: 07/04/24 HISTORY OF PRESENTING ILLNESS This is a pleasant 33-year-old with past medical history significant for hyp ertension, chronic kidney disease. He states he has not been taking his medications for the last 4 months secondary to expense. He has a history of hypertension apparently from the time of COVID and blood pressure he believes was more controlled 4 months ago in the 140s over 90s however has not been taking medications. He presented secondary to left jaw pain and denies any chest pain or pressure or significant shortness of breath. He states otherwise he has been feeling okay. He was found to have extremely elevated blood pressure in the 250s over 140s and placed on Cleviprex drip and admitted to ICU. Amlodipine, carvedilol, hydralazine were initiated. He is normally on combination hydrochlorothiazide and ARB with amlodipine. ARB has been held secondary to acute kidney injury, possible progression of chronic kidney disease. Echocardiogram performed with severe LVH and normal left ventricular function. 07/02 Patient seen and examined. Patient denies any chest pain or pressure. Cleviprex stopped however blood pressure 1 from 150s up to 180s over 120s. Additionally Aldactone was added and blood pressure still not at goal. Creatinine remained stable. Still making good urine. 07/03 Patient seen and examined. Patient denies any chest pain or pressure. Cleviprex was briefly stopped yesterday however blood pressure went back up and therefore it was restarted. Cleviprex again was stopped this morning. He was given Lasix yesterday with what he states was significant urine output. Creatinine mildly increased up to 3.1. Aldosterone 34, renin 27. 07/04 Patient has been transferred from ICU to med-surg. Patient seen and examined. Patient denies chest pain or pressure, no shortness of breath. He has been seen by nephrology and cleared for discharge. Hydralazine frequency was increased to 4 times daily by nephrology. Blood pressure readings are improved running 122/84-142/84, heart rate is in the 70s and 80s, pulse ox 100% on room air. Repeat blood work reveals sodium 135, potassium 3.8, BUN 35 and creatinine 3.22. PHYSICAL EXAMINATION Vital signs reviewed. CONSTITUTIONAL: No apparent distress. HEENT: Head is normocephalic. Pupils are equal, round. Sclerae anicteric. Mucous membranes of the mouth are moist. No JVD. No carotid bruit. CHEST EXAMINATION: Lungs are clear to auscultation. No chest wall tenderness is noted on palpation or with deep breathing. HEART EXAMINATION: Regular rate and rhythm. S1, S2 heard. No murmurs, gallops or rub. ABDOMEN: Soft, nontender. Positive bowel sounds. EXTREMITIES: 2+ peripheral pulses, no lower extremity edema and no calf tenderness. NEUROLOGIC EXAMINATION: Patient is awake, alert and oriented x3. ASSESSMENT Hypertensive emergency Jaw pain may be related to angina from uncontrolled hypertension Non-STEMI type II mechanism related to hypertension, chronic kidney disease Acute kidney injury versus progression to chronic kidney disease Severe LVH Medical noncompliance PLAN Evaluate for secondary causes of hypertension. Renal ultrasound shows no significant stenosis however ideally an angiogram. ABIs normal and no evidence of coarctation Aldosterone and renin level normal Continue current blood pressure medications: Amlodipine 10 mg daily, Coreg 25 mg twice daily, clonidine 0.3 mg 3 times daily, hydralazine 100 mg 4 times daily, losartan 25 mg daily, Aldactone 50 mg twice daily Patient is cleared for discharge from cardiology perspective Nurse practitioner note has been reviewed, I agree with documented findings and plan of care. Patient was seen and examined. Objective - Vital Signs Vital signs: Vital Signs Temp 98.1 F 07/04/24 11:35 Pulse 72 07/04/24 11:35 Resp 17 07/04/24 11:35 BP 142/84 07/04/24 11:35 Pulse Ox 100 07/04/24 11:35 FiO2 21 07/03/24 23:07 Intake & Output 07/03/24 07/04/24 07/04/24 18:59 06:59 18:59 Intake Total 1080 20 20 Output Total 725 350 Balance 355 -330 20 Intake: IV 40 20 20 Invasive Line 2 20 10 10 Invasive Line 3 20 10 10 Oral 1040 Output: Urine 725 350 Other: Voiding Method Urinal Urinal Urinal # Voids 3 # Bowel Movements 1 - Labs CBC & Chem 7: 07/03/24 05:28 07/04/24 04:00 Labs: Abnormal Lab Results - Last 24 Hours (Table) 07/04/24 Range/Units 04:00 Sodium 135 L (137-145) mmol/L BUN 35 H (9-20) mg/dL Creatinine 3.22 H (0.66-1.25) mg/dL
[2024-07-04 14:08] VITALS: BP 122/78; PULSE 65; RESP 16; TEMP 97.6
[2024-07-06 19:38] LABS: Metanephrine, Free 28 pg/mL (< OR = 57); Normetanephrine, Free 219 pg/mL (< OR = 148); Total, Free (MN + NMN) 247 pg/mL (< OR = 205)
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
== END 2024-07-04 14:45 | disposition home or self-care (01) | DRG 199 ==
LOC: EC 17:06 → 2SICU 22:29 → 4SSUR 07-04 11:41
PROVIDERS: ADMIT Hospitalist; ATTEND Hospitalist
DX: I16.1 Hypertensive emergency (principal); I21.A1 Myocardial infarction type 2; Z68.41 Body mass index [BMI] 40.0-44.9, adult; F17.200 Nicotine dependence, unspecified, uncomplicated; E66.9 Obesity, unspecified; D69.6 Thrombocytopenia, unspecified; I12.9 Hypertensive chronic kidney disease with stage 1 through stage 4 chronic kidney disease, or unspecified chronic kidney disease; N17.9 Acute kidney failure, unspecified; N18.30 Chronic kidney disease, stage 3 unspecified; T44.7X6A Underdosing of beta-adrenoreceptor antagonists, initial encounter; T46.1X6A Underdosing of calcium-channel blockers, initial encounter; T46.5X6A Underdosing of other antihypertensive drugs, initial encounter; T50.2X6A Underdosing of carbonic-anhydrase inhibitors, benzothiadiazides and other diuretics, initial encounter; G47.33 Obstructive sleep apnea (adult) (pediatric); K08.89 Other specified disorders of teeth and supporting structures; Z91.141 Patient's other noncompliance with medication regimen due to financial hardship; Z79.899 Other long term (current) drug therapy; Z71.51 Drug abuse counseling and surveillance of drug abuser; Y04.0XXA Assault by unarmed brawl or fight, initial encounter
CPT/HCPCS: 36415; 70450; 70486; 71045; 71046; 80048; 80053; 81001; 82088; 82533; 83516; 83735; 83835; 84100; 84244; 84484; 85025; 85610; 85730; 86038; 86225; 86255; 86334; 86335; 86706; 86803; 87340; 93005; 93306; 93922; 93975; 94660; 96365; 96366; 99291

== ENCOUNTER 2024-07-09 15:48 | Emergency (ER) | payer OTHER ==
--- NOTE | 2024-07-09 17:37 | ED ---
General Adult HPI - General Chief complaint: Recheck/Abnormal Lab/Rx Stated complaint: Hypertension/Sent by doctor Time Seen by Provider: 07/09/24 17:03 Source: patient, RN notes reviewed, old records reviewed Mode of arrival: ambulatory Limitations: no limitations - History of Present Illness Initial comments: 3-year-old male with resistant hypertension presents for evaluation of elevated blood pressure. Patient asymptomatic. He had a recent admission with hypertensive urgency. Patient was started on multiple antihypertensive medications and earlier in the week had felt quite dizzy and was lethargic. These medications were adjusted to reduce his hydralazine and clonidine dose. At repeat visit today his blood pressure was elevated and was sent to the emergency department for further evaluation. - Related Data Previous Rx's Medication Instructions Recorded Losartan [Cozaar] 25 mg PO DAILY #30 tab 07/04/24 Spironolactone [Aldactone] 50 mg PO BID #30 tab 07/04/24 amLODIPine [Norvasc] 10 mg PO DAILY #30 tab 07/04/24 carvediloL [Coreg*] 25 mg PO BID-W/MEALS #60 tab 07/04/24 cloNIDine HCL [Catapres] 0.3 mg PO TID #90 tab 07/04/24 hydrALAZINE HCL [Apresoline] 100 mg PO QID #120 tab 07/04/24 Allergies Allergy/AdvReac Type Severity Reaction Status Date / Time No Known Allergies Allergy Verified 07/09/24 15:55 Review of Systems ROS Statement: Those systems with pertinent positive or pertinent negative responses have been documented in the HPI. ROS Other: All systems not noted in ROS Statement are negative. Past Medical History Past Medical History: Hypertension Additional Past Medical History / Comment(s): [place] with no cpap History of Any Multi-Drug Resistant Organisms: None Reported Past Surgical History: No Surgical Hx Reported Past Anesthesia/Blood Transfusion Reactions: No Reported Reaction Past Psychological History: No Psychological Hx Reported Smoking Status: Current every day smoker - Past Family History Mother Family Medical History: No Reported History General Exam Limitations: no limitations General appearance: alert, in no apparent distress Head exam: Present: atraumatic, normocephalic Eye exam: Present: normal appearance, PERRL ENT exam: Present: normal exam Neck exam: Present: normal inspection. Absent: tenderness, meningismus Respiratory exam: Present: normal lung sounds bilaterally. Absent: respiratory distress, wheezes Cardiovascular Exam: Present: regular rate, normal rhythm GI/Abdominal exam: Present: soft. Absent: distended, tenderness, guarding Neurological exam: Present: alert, oriented X3, CN II-XII intact. Absent: motor sensory deficit Psychiatric exam: Present: normal affect, normal mood Skin exam: Present: warm, dry, intact Course Vital Signs 07/09/24 07/09/24 15:50 18:33 Temperature 98.2 F 97.4 F L Pulse Rate 81 78 Respiratory 17 18 Rate Blood Pressure 181/121 175/111 O2 Sat by Pulse 99 98 Oximetry Medical Decision Making - Medical Decision Making Was pt. sent in by a medical professional or institution (, PA, BIODIESEL OPERATIONS MANAGER, urgent care, hospital, or group home...) When possible be specific @ -No Did you speak to anyone other than the patient for history (EMS, parent, family, police, friend...)? What history was obtained from this source @ -No Did you review nursing and triage notes (agree or disagree)? Why? @ -I reviewed and agree with nursing and triage notes Were old charts reviewed (outside hosp., previous admission, EMS record, old EKG, old radiological studies, urgent care reports/EKG's, group home records)? Report findings @ -No old charts were reviewed Differential Diagnosis: asymptomatic hypertension, hypertensive urgency, hypertensive emergency EKG interpreted by me (3pts min.). @ -As above X-rays interpreted by me (1pt min.). @ -None done CT interpreted by me (1pt min.). @ -None done U/S interpreted by me (1pt. min.). @ -None done What testing was considered but not performed or refused? (CT, X-rays, U/S, labs)? Why? @ -None What meds were considered but not given or refused? Why? @ -None Did you discuss the management of the patient with other professionals (professionals i.e. , CRYS, BIODIESEL OPERATIONS MANAGER, lab, RT, psych nurse, case management social worker, marble cutter, teacher, chief diversity officer, employment case manager)? Give summary @ -[Case discussed with Yesi who is his PCP, will increase hydralazine back to 100 mg 4 times daily and leave clonidine at 0.1 mg 3 times daily all other medications will remain the same. Was smoking cessation discussed for >3mins.? @ -No Was critical care preformed (if so, how long)? @ -No Were there social determinants of health that impacted care today? How? (Homelessness, low income, unemployed, alcoholism, drug addiction, transportation, low edu. Level, literacy, decrease access to med. care, penitentiary, rehab)? @ -No Was there de-escalation of care discussed even if they declined (Discuss DNR or withdrawal of care, Hospice)? DNR status @ -No What co-morbidities impacted this encounter? (DM, HTN, Smoking, COPD, CAD, Cancer, CVA, ARF, Chemo, Hep., AIDS, mental health diagnosis, sleep apnea, morbid obesity)? @ -Hypertension, kidney disease] Was patient admitted / discharged? Hospital course, mention meds given and route, prescriptions, significant lab abnormalities, going to OR and other pertinent info. @ -[23-year-old male with elevated blood pressure, recent medication changes. Patient placed back on his hydralazine at 100 mg 4 times daily which is what he left the hospital taking. He has an appointment with his canvass manager tomorrow and primary care on 2 days from now. No complaints at this time. Undiagnosed new problem with uncertain prognosis? @ -No Drug Therapy requiring intensive monitoring for toxicity (Heparin, Nitro, Insulin, Cardizem)? @ -No Were any procedures done? @ -No Diagnosis/symptom? @ -Hypertension Acute, or Chronic, or Acute on Chronic? @ -Chronic Uncomplicated (without systemic symptoms) or Complicated (systemic symptoms)? @ -Default Side effects of treatment? @ -No Exacerbation, Progression, or Severe Exacerbation? @ -No Poses a threat to life or bodily function? How? (Chest pain, [place], [place], pneumonia, PE, COPD, DKA, ARF, appy, cholecystitis, CVA, Diverticulitis, Homicidal, Suicidal, threat to staff... and all critical care pts) @ -Low risk at this time - Lab Data Result diagrams: 07/09/24 18:02 Lab Results 07/09/24 Range/Units 18:02 Sodium 136 L (137-145) mmol/L Potassium 5.4 H (3.5-5.1) mmol/L Chloride 109 H (98-107) mmol/L Carbon Dioxide 19 L (22-30) mmol/L Anion Gap 8 mmol/L BUN 55 H (9-20) mg/dL Creatinine 3.08 H (0.66-1.25) mg/dL Est GFR (CKD-EPI)AfAm 29 (>60 ml/min/1.73 sqM) Est GFR (CKD-EPI)NonAf 25 (>60 ml/min/1.73 sqM) Glucose 98 (74-99) mg/dL Calcium 9.9 (8.4-10.2) mg/dL Magnesium 2.6 H (1.6-2.3) mg/dL Total Bilirubin 0.8 (0.2-1.3) mg/dL AST 22 (17-59) U/L ALT 30 (4-49) U/L Alkaline Phosphatase 69 (38-126) U/L Total Protein 7.3 (6.3-8.2) g/dL Albumin 4.5 (3.5-5.0) g/dL Disposition Clinical Impression: Hypertension Disposition: HOME SELF-CARE Condition: Fair Instructions (If sedation given, give patient instructions): Hypertension (ED) Additional Instructions: Please take hydralazine 100 mg 4 times daily, leave clonidine at 0.1 mg 3 times daily and leave all other medication as they were previously. Is patient prescribed a controlled substance at d/c from ED?: No Referrals: Khang Schrader MD [Primary Care Provider] - 1-2 days Judy Rucker MD [STAFF PHYSICIAN] - 1-2 days Time of Disposition: 18:12
[2024-07-09 18:32] LABS: ALT 30 U/L (4-49); AST 22 U/L (17-59); African American GFR (CKD) 29 (>60 ml/min/1.73 sqM); Albumin 4.5 g/dL (3.5-5.0); Alkaline Phosphatase 69 U/L (38-126); Anion Gap 8 mmol/L; Blood Urea Nitrogen 55 mg/dL (9-20); Calcium 9.9 mg/dL (8.4-10.2); Carbon Dioxide 19 mmol/L (22-30); Chloride 109 mmol/L (98-107); Glucose 98 mg/dL (74-99); Magnesium 2.6 mg/dL (1.6-2.3); Non-African American GFR(CKD) 25 (>60 ml/min/1.73 sqM); Potassium 5.4 mmol/L (3.5-5.1); Sodium 136 mmol/L (137-145); Total Bilirubin 0.8 mg/dL (0.2-1.3); Total Protein 7.3 g/dL (6.3-8.2)
[2024-07-09 18:34] VITALS: BP 175/111; PULSE 78; RESP 18; TEMP 97.4
== END 2024-07-09 18:51 | disposition home or self-care (01) ==
LOC: EC 15:48
DX: I10 Essential (primary) hypertension (principal); N28.9 Disorder of kidney and ureter, unspecified; F17.200 Nicotine dependence, unspecified, uncomplicated
CPT/HCPCS: 36415; 80053; 83735; 99283

== ENCOUNTER → 2024-07-26 | Outpatient (CLI) | payer OTHER | END | disposition home or self-care (01) | LOC: RADUSWWP 09:32 | PROVIDERS: ATTEND Family Medicine | DX: Z53.9 Procedure and treatment not carried out, unspecified reason (principal) ==